=== PATIENT | female | born 1940 | race Caucasian/White ===

== ENCOUNTER 2020-01-08 09:50 | Outpatient (CLI) | payer MEDICARE, SELFPAY ==
--- NOTE | ~2020-01-08 | US_ITS ---
EXAMINATION: US thyroid DATE: 01/08/2020 11:47 INDICATION: Thyrotoxicosis, unspecified without thyrotoxic crisis. TECHNIQUE: Multiple ultrasound images of the thyroid were obtained. COMPARISON: Ultrasound 08/31/2015, 09/21/2011 FINDINGS: The right thyroid lobe measures 8.0 x 4.3 x 4.3 cm. The left thyroid lobe measures 8.2 x 4.5 x 3.1 c m. There are nodules throughout the thyroid, most of which are solid, most without normal intervenin g parenchyma. Biopsy of 2 nodules on 10/08/2011 was benign. There is a 2.6 cm mixed cystic and solid n odule in right thyroid lobe. There are macrocalcifications in left thyroid lobe. IMPRESSION: 1. Stable multinodular goiter, likely benign. Reviewed, dictated and finalized at location A.
--- NOTE | ~2020-01-08 | DEXA_ITS ---
Bone Density Report Name: Mable Chen Age: 79 Sex: Female Ethnicity: White Date of : 1940 Indication: osteopenia; height loss; Referring Provider: Romi Fuentes Study: Bone densitometry was performed. Exam Date: January 08, 2020 Accession number: [id number] Bone Density: Region BMD T-score Z-score Classification AP Spine (L1, L2) 1.012 0.3 2.9 Normal Femoral Neck (Left) 0.544 -2.7 -0.4 Osteoporosis Total Hip (Left) 0.835 -0.9 1.3 Normal Total Hip Bilateral Avg 0.774 -1.4 0.8 Osteopenia Femoral Neck (Right) 0.579 -2.4 -0.1 Osteopenia Total Hip (Right) 0.713 -1.9 0.3 Osteopenia World Health Organization criteria for BMD impression classify patients as: Normal (T-score at or above -1.0), Osteopenia (T-score between -1.0 and -2.5), or Osteoporosis (T-score at or below -2.5). 10-year Fracture Risk: FRAX not reported because: Some T-score for Spine Total or Hip Total or Femoral Neck at or below -2.5 Previous Exams: Region Exam Age BMD T-score BMD Change BMD Change Date g/cm2 vs Baseline vs Previous AP Spine(L1, L2) 01/08/2020 79 1.012 0.3 0.217(27.3%)# 0.095(10.4%)# 01/12/2011 70 0.917 -0.6 0.122(15.3%)* 0.122(15.3%)* 08/21/2003 63 0.795 -1.7 Total Hip(Left) 01/08/2020 79 0.835 -0.9 0.074(9.7%)# 0.132(18.8%)# 01/12/2011 70 0.703 -2.0 -0.059(-7.7%)* -0.059(-7.7%)* 08/21/2003 63 0.762 -1.5 Total Hip(Right) 01/08/2020 79 0.713 -1.9 -0.027(-3.7%)# 0.001(0.1%)# 01/12/2011 70 0.712 -1.9 -0.028(-3.8%)* -0.028(-3.8%)* 08/21/2003 63 0.741 -1.7 *Denotes significance at 95% confidence level, LSC for AP Spine = 0.022 g/cm2, LSC for Total Hip = 0.027 g/cm2 Clinical Information Provided by Patient: Has used the following medications: Vitamin D, Calcium Patient maximum height was 63 Menopause Age: 48 No regular weight bearing exercise Drinks caffeinated beverages Onset of menses at age 11 Number of children 0 Impression: The patient has osteoporosis, based on the Left Femoral Neck T-score. No significant bone loss was observed. Discussion: INCREASED RISK OF FRACTURE. BONE DENSITY IS UNDESIRABLY LOW AT ONE OR MORE SKELETAL SITES, CONSISTENT WITH POSTMENOPAUSAL OSTEOPOROSIS. This patient's lowest T-score meets the World Health Organization's (WHO) criteria for osteoporosis at one or more sites (T-score -2.5 or below). In untreated patients, the risk of osteoporotic fracture increases approximately
== END 2020-01-08 09:51 | disposition home or self-care (01) ==
LOC: ANHIMG 09:53
PROVIDERS: PCP Internal Medicine; Visit Provider Internal Medicine Endocrinology, Diabetes & Metabolism
DX: E05.90 Thyrotoxicosis, unspecified without thyrotoxic crisis or storm (principal); Z78.0 Asymptomatic menopausal state; E04.2 Nontoxic multinodular goiter; M85.89 Other specified disorders of bone density and structure, multiple sites; M81.0 Age-related osteoporosis without current pathological fracture
CPT/HCPCS: 76536; 77080

== ENCOUNTER 2020-07-18 16:38 | Inpatient (IN) | payer MEDICARE, SELFPAY ==
--- NOTE | ~2020-07-18 | US_ITS ---
EXAMINATION:US venous doppler LE BI INDICATION:Leg swelling TECHNIQUE: Multiple grayscale, color flow and Doppler images of the bilateral lower extremity deep ve nous systems were obtained and reviewed. COMPARISON:No prior studies for comparison. FINDINGS: The common femoral, superficial femoral and popliteal veins demonstrate normal respiratory variation, augmentation and compressibility. Color flow is also seen within the posterior tibial, gr eater saphenous and profunda veins. IMPRESSION: 1: No lower extremity deep venous thrombosis. Reviewed, dictated and finalized at location B.
--- NOTE | ~2020-07-18 | XR_ITS ---
EXAMINATION: XR chest 2V DATE: 07/19/2020 12:48 INDICATION: Cardiac arrhythmia. Lower limb swelling. TECHNIQUE: frontal and lateral views of the chest were obtained. COMPARISON: Chest radiograph dated 11/20/12 FINDINGS: Gas within a large hiatal hernia projecting over the heart. Opacities in the left lower lung zone and minimally at the right lung base which could represent atelectasis and/or pneumonia. No pleural effu marisel or pneumothorax. Cardiomegaly. Cholecystectomy clips in right upper quadrant. IMPRESSION: 1. Opacities in the lower lung zones, left greater than right which could represent atelectasis and/o r pneumonia. 2. Cardiomegaly. 3. Large hiatal hernia. Reviewed, dictated and finalized at location A. IMPRESSION: 1. Opacities in the lower lung zones, left greater than right which could repre sent atelectasis and/or pneumonia. 2. Cardiomegaly. 3. Large hiatal hernia.
[2020-07-18 16:51] VITALS: BP 131/96; PULSE 80; RESP 16; TEMP 36.1; O2SAT 100
[2020-07-18 17:35] LABS: Basophils Percent Auto 0.4 % (0.2-1.2); Eosinophils Absolute Auto 0.1 K/mm3 (0-0.3); Eosinophils Percent Auto 1.1 % (0-4.4); Hematocrit 44.3 % (37.0-47.0); Hemoglobin 14.4 g/dL (12.0-15.0); Immature Granulocyte Absolute 0.04 K/mm3 (0.00-0.031); Immature Granulocyte Percent A 0.4 % (0-0.5); Lymphocytes Absolute Auto 0.78 K/mm3 (0.9-3.2); Lymphocytes Percent Auto 7.5 % (18.3-44.2); Mean Corpuscular HGB Conc 32.5 g/dl (32-36); Mean Corpuscular Hemoglobin 27.6 pg (26-34); Mean Corpuscular Volume 84.9 fl (80-100); Mean Platelet Volume 11.6 fl (7.4-10.4); Monocytes Absolute Auto 0.7 K/mm3 (0.1-0.6); Monocytes Percent Auto 6.5 % (2.6-8.5); Neutrophils Absolute Auto 8.8 K/mm3 (1.3-6.7); Neutrophils Percent Auto 84.1 % (45.5-73.1); Platelet Count Result 235 k/mm3 (150-375); Red Blood Count 5.22 M/mm3 (4.2-5.4); Red Cell Distribution Width 17.8 % (11.5-14.5); White Blood Count 10.5 K/mm3 (4.5-10.0)
[2020-07-18 17:48] LABS: Lactic Acid Reflex 1.1 mmol/L (0.7-2.1)
[2020-07-18 19:14] LABS: INR 1.1; Partial Thromboplastin Time 31.4 SECONDS (22.3-36.8); Prothrombin Time 14.6 Seconds (11.1-14.7)
[2020-07-18 19:19] LABS: Alanine Aminotransferase 12 U/L (4-35); Albumin Level 3.8 g/dL (3.5-5.1); Alkaline Phosphatase 78 U/L (38-126); Anion Gap 8 mmol/L (8-16); Aspartate Amino Transferase 17 U/L (14-36); Bilirubin,Total 0.7 mg/dL (0.2-1.3); Blood Urea Nitrogen 53 mg/dL (7-17); Calcium 9.3 mg/dL (8.4-10.2); Carbon Dioxide 26 mmol/L (22-30); Chloride 106 mmol/L (98-107); Estimated CRCL calculation 31 ml/min; Estimated Glomerular Filt Rate 31; Glucose 99 mg/dL (65-105); Potassium 4.4 mmol/L (3.4-5.0); Sodium 140 mmol/L (137-145)
[2020-07-18 19:31] LABS: CRP 2.9 mg/dL (<1.0)
[2020-07-18 21:07] LABS: NT Pro B Type Natriuretic Pept 531 PG/ML (5-100)
--- NOTE | 2020-07-18 21:18 | ED.GENADULT ---
HPI - General Adult General Chief complaint: Wound/Laceration Stated complaint: CELLULITIS L LEG Time Seen by Provider: 07/18/20 20:16 Source: patient Mode of arrival: ambulatory Limitations: no limitations History of Present Illness HPI narrative: 80-year-old with a history of hypertension, atrial fibrillation here with complaints of left leg swelling and drainage for past 7 days. Patient states that her neighbor saw her leg today and was told to go to the emergency room. She denies any fever or chills. No history of shortness of breath or chest pain. Related Data Home Medications Medication Instructions Recorded Confirmed aspirin 81 mg tablet,delayed 81 mg PO DAILY 12/17/19 02/24/20 release colesevelam 3.75 gram oral powder 3,750 mg PO DAILY 12/17/19 02/24/20 packet metoprolol succinate 50 mg 50 mg PO DAILY 12/17/19 02/24/20 tablet,extended release 24 hr netarsudil 0.02 % eye drops 1 drop EACH EYE QPM 12/17/19 02/24/20 omega-3 fatty acids 1,000 mg 1,500 mg PO DAILY cap 12/17/19 02/24/20 capsule Allergies Allergy/AdvReac Type Severity Reaction Status Date / Time codeine Allergy Unknown Unknown Verified 07/18/20 16:11 Jgyyhfe-Rgj-Jku Reductase Allergy Unknown Unknown Verified 07/18/20 16:11 Inhibitor Sulfa (Sulfonamide Allergy Unknown Unknown Verified 07/18/20 16:11 Antibiotics) sulfanilamide Allergy Unknown Unknown Verified 07/18/20 16:11 Review of Systems Review of Systems: All systems reviewed & are unremarkable except as noted in HPI and below Constitutional: Constitutional: Reports no additional constitutional complaints Eyes: Eyes: Reports no additional eye complaints ENT: Reports system reviewed and no additional complaints, except as documented Cardiovascular: Cardiovascular: Reports no additional cardiovascular complaints Respiratory: Respiratory: Reports no additional respiratory complaints Gastrointestinal: Gastrointestinal: Reports no additional gastrointestinal complaints Musculoskeletal: Musculoskeletal: Reports as per HPI Integumentary/Breasts: Skin/Breast: Reports as per HPI Neurologic: Reports system reviewed and no additional complaints, except as documented Psychiatric: Psychiatric: Reports no additional psychiatric complaints PMFSH Past Medical History Medical History Aortic valve disease Atrial fibrillation, controlled Edema Essential (primary) hypertension Hx of malignant neoplasm of kidney Obstructive sleep apnea On watermaster drug therapy Peripheral polyneuropathy Primary osteoarthritis involving multiple joints Statin intolerance Surgical History Surgical History History of nephrectomy Family History Family History Father Hypertension Mother Hypertension Other Depression Family history of arthritis Family history of atrial fibrillation Family history of hearing loss Family history of malignant neoplasm of urinary bladder Social History Social History Smoking status: Never smoker Alcohol intake: never Exam Narrative: Exam Narrative: GENERAL: Well-appearing, well-nourished, and in no acute distress. HEAD: Normocephalic, atraumatic. EYES: PERRLA and EOMI. NECK: Supple. CHEST: Clear to auscultation. No respiratory distress. HEART: Regular rate and rhythm. No murmur heard. Normal peripheral pulses. ABDOMEN: Soft, nontender, nondistended, normal active bowel sounds. EXTREMITIES: Normal range of motion. bilateral edema ,on the left leg is weeping ,warm to touch and few open areas SKIN: Warm, dry, no rash. NEURO: No focal deficits. Alert and oriented x3. PSYCH: Normal mood and affect. Const: General: cooperative Course Course Emergency Course: I discussed lab work with the patient. [facility]
[2020-07-18] MEDS: FUROSEMIDE INJ 40 MG/4 ML VIAL IV PUSH (21:20)
[2020-07-18 23:35] VITALS: BP 111/51; PULSE 76; RESP 18; TEMP 36.2; O2SAT 98; BMI 36.3
[2020-07-19] VITALS (7 sets, daily range): BP systolic 96–107; BP diastolic 46–56; PULSE 85–87; RESP 18; TEMP 36.3–36.6; O2SAT 93–96
--- NOTE | 2020-07-19 | ADMGEN ---
This patient, Mable Chen, was admitted to [facility] Surg Room 315-01. Patient/family oriented to hospital policies and general routines including ID bracelet, bed and alarms, visiting hours, pain management, procedures, bathroom and other care routines, personal items, smoking policy, room service/diet, and visiting hours. Information on how to activate the Rapid Response Team has been discussed. Patient/Family are encouraged to report perceived risks to care and to ask questions if they do not understand what they are told or what they should do.
--- NOTE | 2020-07-19 05:13 | PM.IMHP ---
H&P: HPI History of Present Illness Date/Time: 07/19/20 05:13 Chief Complaint: Left leg infection Narrative: 80-year-old female with a past medical history of atrial fibrillation, CHF, central hypertension and pre diabetes who presented to the ER with leg pain and erythema. The patient had noticed increased level leg swelling and redness for the last 2 weeks. She thought that the symptoms were due to sleeping in her chair with her legs hanging lower. She thought her symptoms would go away but it did not. It was accompanied by some burning and stinging pain in the left lower extremity. It been accompanied by some drainage from her leg. Her neighbor saw her leg and told her to go to the ER for evaluation. The patient called her primary care Dr. Dr. Sujit Shen and he recommended she go to the ER as well. She denies any fevers or chills. She has not had any nausea or vomiting. She reports she has been sleeping in her chair because she has to walk up 2 steps to get in her bed. The bed she uses was her great grandmother's bed. She reports that sleeping in the bed at the hospital as been much more comfortable and sleeping in her chair at home. She does not have a recliner at home but has been using a chair with doris. She reports that she does not usually use a cane for ambulation but used a cane to help her get from the stretcher to the bed and she stated that that helped her stability greatly. She denies any shortness of breath or chest pain. She denies any urinary continence dysuria or hematuria. She has been having normal bowel movements every day her every other day. She denies any orthopnea or paroxysmal nocturnal dyspnea. Review of Systems Review of Systems: Narrative: 12 systems were reviewed with pertinent positives and negatives per HPI. Except as documented in the HPI, all other systems were reviewed and are negative. [facility] Past Medical History Medical History (Updated 07/19/20 @ 10:58 by Shahana Ayala DO) Aortic valve disease Atrial fibrillation, controlled Chronic kidney disease Baseline creatinine between 1.5 and 1.6 Chronic venous stasis dermatitis Diabetes mellitus Essential (primary) hypertension Glaucoma Hx of malignant neoplasm of kidney Hyperlipidemia Hyperthyroidism Multinodular goiter Obstructive sleep apnea Peripheral polyneuropathy Primary osteoarthritis involving multiple joints Statin intolerance Surgical History Surgical History (Updated 07/19/20 @ 05:30 by Shahana Ayala DO) History of nephrectomy Left nephrectomy due to kidney cancer Status post cataract extraction of both eyes with insertion of intraocular lens Family History Family History Father Hypertension Bladder cancer TIA (transient ischemic attack) Mother Hypertension Chronic bronchitis Sibling Hypertension Other Depression Family history of atrial fibrillation Family history of hearing loss Social History Social History (Updated 07/19/20 @ 10:51 by Shahana Ayala DO) Social History: The patient lives in her own home. Her nephew lives with her. She she is single and has never been . She does not have children. She is a retired teacher. She will occasionally drink an alcoholic beverage. She is a lifelong nonsmoker. She is still independent in activities of daily living and drives. Primary care physician: Dr. Sujit Shen Code status: Full code Healthcare power of sales store checker: Nephew Smoking status: Never smoker Alcohol intake: never Substance use: never Spiritual care concerns: No Meds Home Medications and Allergies Home Medications Medication Instructions Recorded Confirmed Type aspirin 81 mg tablet,delayed 81 mg PO DAILY 12/17/19 07/19/20 History release colesevelam 3.75 gram oral powder 3,750 mg PO DAILY 12/17/19 07/19/20 History packet metoprolol succinate 50 mg 50 mg PO DAILY
[2020-07-19 06:10] LABS: Basophils Percent Auto 0.2 % (0.2-1.2); Eosinophils Absolute Auto 0.1 K/mm3 (0-0.3); Eosinophils Percent Auto 0.5 % (0-4.4); Hematocrit 38.1 % (37.0-47.0); Hemoglobin 12.5 g/dL (12.0-15.0); Immature Granulocyte Absolute 0.05 K/mm3 (0.00-0.031); Immature Granulocyte Percent A 0.4 % (0-0.5); Lymphocytes Absolute Auto 0.53 K/mm3 (0.9-3.2); Lymphocytes Percent Auto 4.7 % (18.3-44.2); Mean Corpuscular HGB Conc 32.8 g/dl (32-36); Mean Corpuscular Hemoglobin 27.5 pg (26-34); Mean Corpuscular Volume 83.7 fl (80-100); Mean Platelet Volume 11.7 fl (7.4-10.4); Monocytes Absolute Auto 1.1 K/mm3 (0.1-0.6); Monocytes Percent Auto 9.6 % (2.6-8.5); Neutrophils Absolute Auto 9.4 K/mm3 (1.3-6.7); Neutrophils Percent Auto 84.6 % (45.5-73.1); Platelet Count Result 204 k/mm3 (150-375); Red Blood Count 4.55 M/mm3 (4.2-5.4); Red Cell Distribution Width 17.3 % (11.5-14.5); White Blood Count 11.2 K/mm3 (4.5-10.0)
[2020-07-19 06:26] LABS: Anion Gap 6 mmol/L (8-16); Blood Urea Nitrogen 50 mg/dL (7-17); Calcium 8.8 mg/dL (8.4-10.2); Carbon Dioxide 26 mmol/L (22-30); Chloride 107 mmol/L (98-107); Estimated CRCL calculation 27 ml/min; Estimated Glomerular Filt Rate 29; Glucose 111 mg/dL (65-105); Potassium 3.8 mmol/L (3.4-5.0); Sodium 139 mmol/L (137-145)
[2020-07-19] MEDS: FUROSEMIDE INJ 40 MG/4 ML VIAL IV PUSH (08:14)
--- NOTE | 2020-07-19 10:52 | ECG_ITS ---
Measurements Intervals [place] Rate: 84 P: AL: 0 QRS: 43 QRSD: 97 T: 46 QT: 384 QTc: 455 Interpretive Statements ATRIAL FIBRILLATION LOW QRS VOLTAGE- DIFFUSE LEADS ABNORMAL ECG Electronically Signed On 07-19-2020 14:02:30 CDT by Miguel Mccurdy D.O.
[2020-07-19] MEDS: methiMAzole 5 MG TAB PO (11:24)
[2020-07-19] MEDS: METOPROLOL SUCCINATE EXT REL 50 MG TABCR PO (11:25)
[2020-07-19] MEDS: OLMESARTAN MEDOXOMIL 20 MG TABLET 40 MG PO (11:27)
[2020-07-19] MEDS: hydroCHLOROthiazide 12.5 MG CAPSULE PO (11:27)
[2020-07-19] MEDS: amLODIPine BESYLATE 5 MG TABLET PO (11:28)
[2020-07-19] MEDS: COLESEVELAM 625 MG TABLET 3750 MG PO (11:28)
[2020-07-19] MEDS: CYANOCOBALAMIN 500 MCG TABLET PO (11:29)
[2020-07-19] MEDS: ASPIRIN 81 MG ENTERIC TABLET PO (11:29)
[2020-07-19] MEDS: TIMOLOL MALEATE 0.5% OP SOLN 5 ML BOTTLE 1 DROP EACH EYE (11:32)
[2020-07-19] MEDS: BRIMONIDINE TARTRATE 0.2% OP SOLN 5 ML BTL 1 DROP EACH EYE (11:33)
[2020-07-19 11:52] LABS: Glucose Point of Care 130 (65-105)
--- NOTE | 2020-07-19 14:37 | PM.IMPN ---
Progress Note: A&P Assessment and Plan (1) Cellulitis of left leg: Code(s): L03.116 - Cellulitis of left lower limb Status: Acute Assessment and Plan: Patient has cellulitis of her left lower extremity. Given that she is prediabetic, place patient on antibiotic therapy with vancomycin and will add Primaxin. The patient's does have chronic venous stasis dermatitis and likely has increased dependent lower extremity edema due to her sleeping sitting up in a chair. The patient is not reporting symptoms of CHF, denies SOB (2) Edema: Qualifiers: Edema type: unspecified Qualified Code(s): R60.9 - Edema, unspecified Code(s): R60.9 - Edema, unspecified Status: Acute Assessment and Plan: Shows history of CHF but no echo in computer Will check Echo Will check Venous Dopplers for DVT rule out since she has history of Afib, not on anticoagulation. Continue monitoring with SQ lovenox 40 mg daily. (3) Obstructive sleep apnea: Code(s): G47.33 - Obstructive sleep apnea (adult) (pediatric) Status: Acute Assessment and Plan: Auto titrating cPAP has been ordered as needed for sleep. (4) Atrial fibrillation, controlled: Code(s): I48.91 - Unspecified atrial fibrillation Status: Acute Assessment and Plan: The patient's heart rate is irregular on and she is likely in atrial fibrillation but is rate controlled. Given the patient's history of AFib she is not on chronic anticoagulation. EKG shows Afib HR 84 bpm. (5) Essential (primary) hypertension: Code(s): I10 - Essential (primary) hypertension Status: Acute Assessment and Plan: Will resume the patient's home antihypertensives, Tapazole, and oral hypoglycemic agents. Patient will be placed on hypoglycemia protocol. (6) Diabetes mellitus: Code(s): E11.9 - Type 2 diabetes mellitus without complications Status: Acute Assessment and Plan: Will hold her home oral medications. Check hemoglobin A1c. Glucose check insert a.c. HS. Sliding glucose initiated. Hypoglycemic protocol in place. Time Spent With Patient Time with patient: 25 - 35 minutes Subjective Date/time seen: 07/19/20 14:37 Interval history: Date of service 07/19/2020: Patient reports some improvement of her leg swelling and redness. This is been going on the last few weeks. She does have some tightness to her lower extremities as well as some weeping from some wounds. Denies any chest pain, shortness of breath, cough, fever, chills, nausea, vomiting, abdominal pain, diarrhea, constipation or any other symptoms at this time. Review of Systems Review of Systems: All systems reviewed & are unremarkable except as noted in HPI and below Exam Narrative: Exam Narrative: General: 80-year-old woman laying flat in bed, with head elevated at 30?. Appears comfortable. In no acute distress. Skin: No jaundice or cyanosis. Good skin turgor. Neck: Full range of motion. Supple. Respiratory: Lungs are clear to auscultation bilaterally. No bony chest wall tenderness. Cardiovascular: The heart has a regular rate and rhythm without murmur. Lower extremities: 1 to 2+ lower extremity pitting edema. Multiple weeping wound with some scabbing in place to bilateral lower extremities, warmth noted. Distal pulses are easily palpated. Some bilateral calf discomfort with palpation Gastrointestinal: The abdomen is soft, nontender and nondistended with active bowel sounds. Psychiatric: Lucid and oriented. Memory intact. Neurologic: No focal deficits. Speech is clear. No facial drooping. Objective Data Vital Signs Vital Signs: Vital Signs - 24 hr 07/18/20 16:51 07/18/20 23:35 07/19/20 06:00 Temperature 97 F L 97.2 F L 98 F Pulse Rate 80 76 87 Respiratory Rate 16 18 18 Blood Pressure 131/96 H 111/51 L 107/56 L Pulse Oximetry 100 98 95 07/19/20 08:56 07/19/20 11:25 07/19/20
[2020-07-19] MEDS: EZETIMIBE 10 MG TABLET PO (15:32)
[2020-07-19] MEDS: FOLIC ACID 1 MG TABLET PO (15:32)
[2020-07-19 17:02] LABS: Glucose Point of Care 143 (65-105)
[2020-07-19] MEDS: LATANOPROST 0.005% OP SOLN 2.5 ML BTL 1 DROP EACH EYE (19:49)
[2020-07-19] MEDS: ACETAMINOPHEN 325 MG TABLET 650 MG PO (19:49)
[2020-07-19 21:07] LABS: Glucose Point of Care 139 (65-105)
--- NOTE | 2020-07-20 | ECHO_ITS ---
Patient Info Name: Mable Chen Age: 80 years : 1940 Gender: Female Ht: 65 in Wt: 218 lbs BSA: 2.17 m2 HR: 75 bpm BP: 107 / 56 mmHg Technical Quality: Fair Exam Date: 07/20/2020 2:28 PM Exam Location: [facility] Patient Status: Inpatient Admit Date: 07/18/2020 Staff Ordering Physician: Janice Phillips PA-C [employer] Programmer: Gerardo Cleveland RDCS, RT Attending Provider: Janice Phillips PA-C Exam Type: CA echo dop color flow w con Study Info Complete two-dimensional, color flow and Doppler transthoracic echocardiogram is performed with contrast to opacify the left ventricle and to improve the deliniation of the left ventricle endocardial borders. Strain analysis performed. Summary 1. Left ventricular chamber dimension is normal. 2. Definity contrast administered improved wall motion interpretation. 3. Left ventricular systolic function is normal, estimated at 60-65%. 4. There is mildly increased left ventricular wall thickness. 5. The left ventricular diastolic function is normal. 6. E/e' 7 is not elevated. 7. Left atrial chamber dimension is mildly enlarged. 8. Right atrial chamber dimension is moderately enlarged. 9. There is mild aortic valve sclerosis. 10. There is mild mitral valve regurgitation. 11. There is moderate tricuspid valve regurgitation. 12. No pulmonary hypertension, estimated pulmonary arterial systolic pressure is 38 mmHg. Left Ventricle E/e' 7 is not elevated. Definity contrast administered improved wall motion interpretation. Left ventricular chamber dimension is normal. Left ventricular systolic function is normal, estimated at 60-65%. There is mildly increased left ventricular wall thickness. The left ventricular diastolic function is normal. Right Ventricle Right ventricular systolic function is normal and with normal TAPSE 2.2 cm. Right ventricular chamber dimension is normal. Left Atria Left atrial chamber dimension is mildly enlarged. Right Atria Right atrial chamber dimension is moderately enlarged. Aortic Valve The aortic valve is trileaflet. There is mild aortic valve sclerosis. There is no aortic valve stenosis. There is no aortic valve regurgitation. Pulmonic Valve There is no pulmonic regurgitation. Mitral Valve There is no mitral valve stenosis. There is mild mitral valve regurgitation. Tricuspid Valve There is moderate tricuspid valve regurgitation. No pulmonary hypertension, estimated pulmonary arterial systolic pressure is 38 mmHg. Pericardium/Pleural There is no pericardial effusion. Inferior Vena Cava Inferior vena cava is not well visualized. Aorta The aortic root size at the sinus of Valsalva is normal. Left Ventricular Outflow Tract Name Value Normal LVOT 2D LVOT Diameter 2.01 cm LVOT Doppler LVOT Peak Gradient 3 mmHg LVOT Mean Gradient 2 mmHg LVOT VTI 16.22 cm LVOT VTI/AV VTI Ratio 0.61 LVOT Stroke Volume 51.36 ml LVOT CO 4.39 l/min
[2020-07-20 06:00] VITALS: BP 102/64; PULSE 88; RESP 20; TEMP 36.4; O2SAT 99
[2020-07-20 06:41] LABS: Basophils Percent Auto 0.2 % (0.2-1.2); Eosinophils Absolute Auto 0.2 K/mm3 (0-0.3); Eosinophils Percent Auto 2.1 % (0-4.4); Hemoglobin 12.1 g/dL (12.0-15.0); Immature Granulocyte Absolute 0.04 K/mm3 (0.00-0.031); Immature Granulocyte Percent A 0.5 % (0-0.5); Lymphocytes Absolute Auto 0.85 K/mm3 (0.9-3.2); Mean Corpuscular HGB Conc 32.7 g/dl (32-36); Mean Corpuscular Hemoglobin 27.9 pg (26-34); Mean Corpuscular Volume 85.5 fl (80-100); Mean Platelet Volume 11.9 fl (7.4-10.4); Monocytes Absolute Auto 0.9 K/mm3 (0.1-0.6); Neutrophils Absolute Auto 6.5 K/mm3 (1.3-6.7); Neutrophils Percent Auto 76.2 % (45.5-73.1); Platelet Count Result 192 k/mm3 (150-375); Red Blood Count 4.33 M/mm3 (4.2-5.4); Red Cell Distribution Width 17.5 % (11.5-14.5); White Blood Count 8.5 K/mm3 (4.5-10.0)
[2020-07-20 06:53] LABS: Potassium 3.5 mmol/L (3.4-5.0)
[2020-07-20 07:02] LABS: Anion Gap 4 mmol/L (8-16); Blood Urea Nitrogen 49 mg/dL (7-17); CRP 7.1 mg/dL (<1.0); Calcium 8.5 mg/dL (8.4-10.2); Carbon Dioxide 26 mmol/L (22-30); Chloride 105 mmol/L (98-107); Estimated CRCL calculation 25 ml/min; Estimated Glomerular Filt Rate 27; Glucose 116 mg/dL (65-105); Sodium 135 mmol/L (137-145)
[2020-07-20 07:41] LABS: Glucose Point of Care 97 (65-105)
[2020-07-20 08:20] VITALS: BP 116/67; PULSE 76
[2020-07-20 08:54] VITALS: PULSE 76
[2020-07-20] MEDS: METOPROLOL SUCCINATE EXT REL 50 MG TABCR PO (08:54)
[2020-07-20] MEDS: COLESEVELAM 625 MG TABLET 3750 MG PO (08:55)
[2020-07-20] MEDS: ASPIRIN 81 MG ENTERIC TABLET PO (08:55)
[2020-07-20] MEDS: CYANOCOBALAMIN 500 MCG TABLET PO (08:55)
[2020-07-20] MEDS: EZETIMIBE 10 MG TABLET PO (08:56)
[2020-07-20] MEDS: FOLIC ACID 1 MG TABLET PO (08:56)
[2020-07-20] MEDS: ENOXAPARIN 40 MG/0.4 ML SYRINGE SUB-Q (08:57)
[2020-07-20] MEDS: BRIMONIDINE TARTRATE 0.2% OP SOLN 5 ML BTL 1 DROP EACH EYE (10:32)
[2020-07-20] MEDS: TIMOLOL MALEATE 0.5% OP SOLN 5 ML BOTTLE 1 DROP EACH EYE (10:32)
[2020-07-20] MEDS: methiMAzole 5 MG TAB PO (10:33)
[2020-07-20 11:31] LABS: Glucose Point of Care 138 (65-105)
--- NOTE | 2020-07-20 12:34 | PM.IMPN ---
Progress Note: A&P Assessment and Plan (1) Hypotension: Code(s): I95.9 - Hypotension, unspecified Status: Acute Assessment and Plan: 07/20/20- BP this morning was low 102/64. Could be from over diuresis, she is asymptomatic. Held her HCTZ, Amlodipine and Benicar this morning. Will monitor throughout the day, then restart HCTZ and Benicar in the morning. (2) Cellulitis of left leg: Code(s): L03.116 - Cellulitis of left lower limb Status: Acute Assessment and Plan: Patient has cellulitis of her left lower extremity. Given that she is prediabetic, place patient on antibiotic therapy with vancomycin and will add Primaxin. The patient's does have chronic venous stasis dermatitis and likely has increased dependent lower extremity edema due to her sleeping sitting up in a chair. Cellulitis is improving, no more warmth to extremities, open wounds noted, some slight erythema but mostly from chronic venous stasis changes. (3) Edema: Qualifiers: Edema type: unspecified Qualified Code(s): R60.9 - Edema, unspecified Code(s): R60.9 - Edema, unspecified Status: Acute Assessment and Plan: Shows history of CHF but no echo in computer Echo pending Venous Dopplers negative for DVT. Continue monitoring with SQ lovenox 40 mg daily. Improved with diuresis. (4) Obstructive sleep apnea: Code(s): G47.33 - Obstructive sleep apnea (adult) (pediatric) Status: Acute Assessment and Plan: Auto titrating cPAP has been ordered as needed for sleep. (5) Atrial fibrillation, controlled: Code(s): I48.91 - Unspecified atrial fibrillation Status: Acute Assessment and Plan: The patient's heart rate is irregular on and she is likely in atrial fibrillation but is rate controlled. Given the patient's history of AFib she is not on chronic anticoagulation. EKG shows Afib HR 84 bpm. (6) Diabetes mellitus: Code(s): E11.9 - Type 2 diabetes mellitus without complications Status: Acute Assessment and Plan: Will hold her home oral medications. Check hemoglobin A1c. Glucose check insert a.c. HS. Sliding glucose initiated. Hypoglycemic protocol in place. Time Spent With Patient Time with patient: 25 - 35 minutes Subjective Date/time seen: 07/20/20 12:34 Interval history: Date of service 07/20/2020: Patient reports some improvement of her leg swelling and redness. Patient still has oozing wounds to her lower extremities. Her blood pressure was on the lower side this morning but she denies any lightheadedness or dizziness. Denies any chest pain, shortness of breath, cough, fever, chills, nausea, vomiting, abdominal pain, diarrhea, constipation or any other symptoms at this time. Review of Systems Review of Systems: All systems reviewed & are unremarkable except as noted in HPI and below Exam Narrative: Exam Narrative: General: 80-year-old woman sitting up in the chair talking to the nurse. Appears comfortable. In no acute distress. Skin: No jaundice or cyanosis. Good skin turgor. Neck: Full range of motion. Supple. Respiratory: Lungs are clear to auscultation bilaterally. No bony chest wall tenderness. Cardiovascular: The heart has a regular rate and rhythm without murmur. Lower extremities: 1 to 2+ lower extremity pitting edema. Multiple weeping wound with some scabbing in place to bilateral lower extremities, no warmth noted on examination. Distal pulses are easily palpated. No calf tenderness. Gastrointestinal: The abdomen is soft, nontender and nondistended with active bowel sounds. Psychiatric: Lucid and oriented. Memory intact. Neurologic: No focal deficits. Speech is clear. No facial drooping. Objective Data Vital Signs Vital Signs: Vital Signs - 24 hr 07/19/20 14:00 07/19/20 15:33 07/19/20 22:00 Temperature 97.3 F L 97.8 F Pulse Rate 87 85 Respiratory Rate 18 18 Blood Pr
[2020-07-20] MEDS: PERFLUTREN LIPID MICROSPHERES 1.5 ML VIAL DILUTED TO 10 ML TOTAL VOLUME IV PUSH (15:15)
--- NOTE | 2020-07-20 15:16 | PC.NURSE ---
On 07/20/20, the student, [Miky Stiles ], provided care and completed [facility] documentation on this patient. I have reviewed the student's documentation and agree with the findings.
--- NOTE | 2020-07-20 15:16 | PC.NURSE ---
On 07/20/20, the student, [Urmila Alexander], provided care and completed [employer] documentation on this patient. I have reviewed the student's documentation and agree with the findings.
[2020-07-20 16:00] VITALS: BP 97/62; PULSE 51; RESP 20; TEMP 36.1; O2SAT 99
[2020-07-20] MEDS: SILVERGEL (ELTA) 45 ML 1 APPLIC TOPICAL (16:13)
[2020-07-20 16:42] LABS: Glucose Point of Care 122 (65-105)
[2020-07-20 20:50] VITALS: PULSE 91; RESP 18; O2SAT 95
[2020-07-20] MEDS: LATANOPROST 0.005% OP SOLN 2.5 ML BTL 1 DROP EACH EYE (21:05)
[2020-07-20 21:17] LABS: Glucose Point of Care 98 (65-105)
[2020-07-20] MEDS: ACETAMINOPHEN 325 MG TABLET 650 MG PO (21:26)
[2020-07-20 22:00] VITALS: BP 105/53; PULSE 91; RESP 18; TEMP 36.7; O2SAT 95
[2020-07-21] VITALS (9 sets, daily range): BP systolic 89–107; BP diastolic 52–71; PULSE 78–94; RESP 20; TEMP 36.2–37; O2SAT 9–98
[2020-07-21 07:07] LABS: Hematocrit 34.4 % (37.0-47.0); Hemoglobin 11.3 g/dL (12.0-15.0); Mean Corpuscular HGB Conc 32.8 g/dl (32-36); Mean Corpuscular Hemoglobin 27.4 pg (26-34); Mean Corpuscular Volume 83.5 fl (80-100); Mean Platelet Volume 12.3 fl (7.4-10.4); Platelet Count Result 194 k/mm3 (150-375); Red Blood Count 4.12 M/mm3 (4.2-5.4); Red Cell Distribution Width 17.2 % (11.5-14.5); White Blood Count 8.5 K/mm3 (4.5-10.0)
[2020-07-21 07:22] LABS: Anion Gap 3 mmol/L (8-16); Blood Urea Nitrogen 49 mg/dL (7-17); CRP 7.6 mg/dL (<1.0); Calcium 8.4 mg/dL (8.4-10.2); Carbon Dioxide 25 mmol/L (22-30); Chloride 107 mmol/L (98-107); Estimated CRCL calculation 29 ml/min; Estimated Glomerular Filt Rate 31; Glucose 95 mg/dL (65-105); Magnesium 1.9 mg/dL (1.6-2.3); Potassium 3.5 mmol/L (3.4-5.0); Sodium 135 mmol/L (137-145)
[2020-07-21 08:16] LABS: Glucose Point of Care 96 (65-105)
[2020-07-21] MEDS: COLESEVELAM 625 MG TABLET 3750 MG PO (08:20)
[2020-07-21] MEDS: ASPIRIN 81 MG ENTERIC TABLET PO (08:20)
[2020-07-21] MEDS: FOLIC ACID 1 MG TABLET PO (08:21)
[2020-07-21] MEDS: CYANOCOBALAMIN 500 MCG TABLET PO (08:21)
[2020-07-21] MEDS: ENOXAPARIN 40 MG/0.4 ML SYRINGE SUB-Q (08:21)
[2020-07-21] MEDS: EZETIMIBE 10 MG TABLET PO (08:21)
[2020-07-21] MEDS: BRIMONIDINE TARTRATE 0.2% OP SOLN 5 ML BTL 1 DROP EACH EYE (08:21)
[2020-07-21] MEDS: methiMAzole 5 MG TAB PO (08:22)
[2020-07-21] MEDS: METOPROLOL SUCCINATE EXT REL 50 MG TABCR PO (08:22)
[2020-07-21] MEDS: TIMOLOL MALEATE 0.5% OP SOLN 5 ML BOTTLE 1 DROP EACH EYE (08:24)
[2020-07-21] MEDS: SILVERGEL (ELTA) 45 ML 1 APPLIC TOPICAL (08:29)
[2020-07-21] MEDS: hydroCHLOROthiazide 12.5 MG CAPSULE PO (10:32)
[2020-07-21] MEDS: OLMESARTAN MEDOXOMIL 20 MG TABLET 40 MG PO (10:32)
--- NOTE | 2020-07-21 11:58 | PM.DS ---
DS: Admitting Diagnosis Admitting Diagnosis Admitting Diagnosis: Leg swelling/redness DS: Discharge Diagnosis Discharge Diagnosis (1) Hypotension: Code(s): I95.9 - Hypotension, unspecified Status: Acute Assessment and Plan: 07/20/20- BP this morning was still low at 105/56. Could be from over diuresis, she is asymptomatic. Held her HCTZ, Amlodipine and Benicar 07/20-Then restarted HCTZ and Benicar this morning. Rechecked BP at noon and it was 89/56 sitting in the chair and with standing she increased to 107/71. I believe we over diuresised her. Will give IV fluid hydration LR 75 cc/hr for 1 liter. Will continue monitoring BP, recheck labs in the morning. (2) Cellulitis of left leg: Code(s): L03.116 - Cellulitis of left lower limb Status: Acute Assessment and Plan: Patient has cellulitis of her left lower extremity. Given that she is prediabetic, place patient on antibiotic therapy with vancomycin and will add Primaxin. The patient's does have chronic venous stasis dermatitis and likely has increased dependent lower extremity edema due to her sleeping sitting up in a chair. Cellulitis is improving, no more warmth to extremities, open wounds noted, some slight erythema but mostly from chronic venous stasis changes. Will continue antibiotics orally as outpatient Doxycycline and Keflex for 4 more days of therapy. Will start this now and check EKG in the morning due to Borderline QTc on EKG on arrival. Will have her follow up with PCP in 1 week for further evaluation Will have home health monitoring and taking care of extremity wounds and then follow up with our outpatient wound clinic once more stable. She understands and agrees with the plan. All questions answered. (3) Edema: Qualifiers: Edema type: unspecified Qualified Code(s): R60.9 - Edema, unspecified Code(s): R60.9 - Edema, unspecified Status: Acute Assessment and Plan: Echo results rule out CHF cause, most likely from chronic venous insufficiency and venous stasis. Echo showing normal EF and diastolic function. Venous Dopplers negative for DVT. Continue monitoring with SQ lovenox 40 mg daily. Improved with diuresis. Will continue home medications, HCTZ and recommended low salt diet, elevating legs while sitting down, as well as checking her weights daily to ensure there is no wt gain, fluid overload. (4) Obstructive sleep apnea: Code(s): G47.33 - Obstructive sleep apnea (adult) (pediatric) Status: Acute Assessment and Plan: Auto titrating cPAP has been ordered as needed for sleep. (5) Atrial fibrillation, controlled: Code(s): I48.91 - Unspecified atrial fibrillation Status: Acute Assessment and Plan: The patient's heart rate is irregular on and she is likely in atrial fibrillation but is rate controlled. Given the patient's history of AFib she is not on chronic anticoagulation. EKG shows Afib HR 84 bpm. (6) Diabetes mellitus: Qualifiers: Diabetes mellitus type: type 2 Diabetes mellitus usp insulin use: without usp use Diabetes mellitus complication status: without complication Qualified Code(s): E11.9 - Type 2 diabetes mellitus without complications Code(s): E11.9 - Type 2 diabetes mellitus without complications Status: Acute Assessment and Plan: Will hold her home oral medications. Hemoglobin A1c was 6.0, well controlled. Continue oral home medications. Follow up with PCP. (7) Elevated C-reactive protein: Code(s): R79.82 - Elevated C-reactive protein (CRP) Status: Acute Assessment and Plan: Patient has elevated CRP multiple days into hospitalization. She is on broad-spectrum antibiotics with her symptoms improving. She has no change to her respiratory, urinary or abdominal symptoms. She is feeling back to normal at this time. No fevers or chills. Pat
--- NOTE | 2020-07-21 12:19 | PM.IMPN ---
Progress Note: A&P Assessment and Plan (1) Hypotension: Code(s): I95.9 - Hypotension, unspecified Status: Acute Assessment and Plan: 07/20/20- BP this morning was still low at 105/56. Could be from over diuresis, she is asymptomatic. Held her HCTZ, Amlodipine and Benicar 07/20-Then restarted HCTZ and Benicar this morning. Rechecked BP at noon and it was 89/56 sitting in the chair and with standing she increased to 107/71. I believe we over diuresised her. Will give IV fluid hydration LR 75 cc/hr for 1 liter. Will continue monitoring BP, recheck labs in the morning. (2) Cellulitis of left leg: Code(s): L03.116 - Cellulitis of left lower limb Status: Acute Assessment and Plan: Patient has cellulitis of her left lower extremity. Given that she is prediabetic, place patient on antibiotic therapy with vancomycin and will add Primaxin. The patient's does have chronic venous stasis dermatitis and likely has increased dependent lower extremity edema due to her sleeping sitting up in a chair. Cellulitis is improving, no more warmth to extremities, open wounds noted, some slight erythema but mostly from chronic venous stasis changes. Will continue antibiotics orally as outpatient Doxycycline and Keflex for 4 more days of therapy. Will start this now and check EKG in the morning due to Borderline QTc on EKG on arrival. (3) Edema: Qualifiers: Edema type: unspecified Qualified Code(s): R60.9 - Edema, unspecified Code(s): R60.9 - Edema, unspecified Status: Acute Assessment and Plan: Echo results rule out CHF cause, most likely from chronic venous insufficiency and venous stasis. Echo showing normal EF and diastolic function. Venous Dopplers negative for DVT. Continue monitoring with SQ lovenox 40 mg daily. Improved with diuresis. (4) Obstructive sleep apnea: Code(s): G47.33 - Obstructive sleep apnea (adult) (pediatric) Status: Acute Assessment and Plan: Auto titrating cPAP has been ordered as needed for sleep. (5) Atrial fibrillation, controlled: Code(s): I48.91 - Unspecified atrial fibrillation Status: Acute Assessment and Plan: The patient's heart rate is irregular on and she is likely in atrial fibrillation but is rate controlled. Given the patient's history of AFib she is not on chronic anticoagulation. EKG shows Afib HR 84 bpm. (6) Diabetes mellitus: Qualifiers: Diabetes mellitus type: type 2 Diabetes mellitus mcfp insulin use: without exterminator termite use Diabetes mellitus complication status: without complication Qualified Code(s): E11.9 - Type 2 diabetes mellitus without complications Code(s): E11.9 - Type 2 diabetes mellitus without complications Status: Acute Assessment and Plan: Will hold her home oral medications. Hemoglobin A1c was 6.0, well controlled. Continue oral home medications. Follow up with PCP. (7) Elevated C-reactive protein: Code(s): R79.82 - Elevated C-reactive protein (CRP) Status: Acute Assessment and Plan: Patient has elevated CRP multiple days into hospitalization. She is on broad-spectrum antibiotics with her symptoms improving. She has no change to her respiratory, urinary or abdominal symptoms. She is feeling back to normal at this time. No fevers or chills. Patient denies any diarrhea which could be concerning for C diff from antibiotics. Time Spent With Patient Time with patient: 25 - 35 minutes Subjective Date/time seen: 07/21/20 12:19 Interval history: Date of service 07/21/2020: Patient reports some improvement of her leg swelling and redness. She is feeling better today, but appears fatigued/tired. Her blood pressure was still low this morning but she denies any lightheadedness or dizziness. Denies any chest pain, shortness of breath, cough, fever, chills,
[2020-07-21 12:20] LABS: Glucose Point of Care 131 (65-105)
[2020-07-21] MEDS: LACTATED RINGERS 1,000 ML 75 ML IV CONT (12:37)
[2020-07-21] MEDS: CEPHALEXIN 250 MG CAPSULE PO ×2 (14:18→21:03)
[2020-07-21] MEDS: SACCHAROMYCES BOULARDII 250 MG CAPSULE PO (16:40)
[2020-07-21 16:56] LABS: Glucose Point of Care 90 (65-105)
[2020-07-21] MEDS: DOXYCYCLINE HYCLATE 100 MG TABLET PO (21:03)
[2020-07-21] MEDS: LATANOPROST 0.005% OP SOLN 2.5 ML BTL 1 DROP EACH EYE (21:03)
[2020-07-21 22:01] LABS: Glucose Point of Care 111 (65-105)
[2020-07-22 05:46] VITALS: BP 125/73; PULSE 85; RESP 18; TEMP 36.3; O2SAT 97
[2020-07-22] MEDS: CEPHALEXIN 250 MG CAPSULE PO ×3 (05:49→20:56)
[2020-07-22 06:14] LABS: Hematocrit 35.4 % (37.0-47.0); Hemoglobin 11.5 g/dL (12.0-15.0); Mean Corpuscular HGB Conc 32.5 g/dl (32-36); Mean Corpuscular Hemoglobin 27.4 pg (26-34); Mean Corpuscular Volume 84.3 fl (80-100); Mean Platelet Volume 11.4 fl (7.4-10.4); Platelet Count Result 202 k/mm3 (150-375); Red Cell Distribution Width 17.2 % (11.5-14.5); White Blood Count 8.7 K/mm3 (4.5-10.0)
[2020-07-22 06:46] LABS: Anion Gap 6 mmol/L (8-16); Blood Urea Nitrogen 43 mg/dL (7-17); Calcium 8.4 mg/dL (8.4-10.2); Carbon Dioxide 25 mmol/L (22-30); Chloride 108 mmol/L (98-107); Estimated CRCL calculation 29 ml/min; Estimated Glomerular Filt Rate 31; Glucose 92 mg/dL (65-105); Magnesium 1.9 mg/dL (1.6-2.3); Potassium 3.6 mmol/L (3.4-5.0); Sodium 139 mmol/L (137-145)
[2020-07-22 08:43] LABS: Glucose Point of Care 93 (65-105)
[2020-07-22] MEDS: TIMOLOL MALEATE 0.5% OP SOLN 5 ML BOTTLE 1 DROP EACH EYE (08:44)
[2020-07-22] MEDS: SILVERGEL (ELTA) 45 ML 1 APPLIC TOPICAL (08:44)
[2020-07-22] MEDS: COLESEVELAM 625 MG TABLET 3750 MG PO (08:45)
[2020-07-22] MEDS: OLMESARTAN MEDOXOMIL 20 MG TABLET 40 MG PO (08:45)
[2020-07-22 08:46] VITALS: PULSE 71
[2020-07-22] MEDS: EZETIMIBE 10 MG TABLET PO (08:46)
[2020-07-22] MEDS: METOPROLOL SUCCINATE EXT REL 50 MG TABCR PO (08:46)
[2020-07-22] MEDS: ENOXAPARIN 40 MG/0.4 ML SYRINGE SUB-Q (08:48)
[2020-07-22] MEDS: ASPIRIN 81 MG ENTERIC TABLET PO (08:48)
[2020-07-22] MEDS: DOXYCYCLINE HYCLATE 100 MG TABLET PO ×2 (08:49→20:56)
[2020-07-22] MEDS: methiMAzole 5 MG TAB PO (08:49)
[2020-07-22] MEDS: SACCHAROMYCES BOULARDII 250 MG CAPSULE PO ×2 (08:49→16:43)
[2020-07-22] MEDS: FOLIC ACID 1 MG TABLET PO (08:49)
[2020-07-22] MEDS: CYANOCOBALAMIN 500 MCG TABLET PO (08:50)
[2020-07-22] MEDS: BRIMONIDINE TARTRATE 0.2% OP SOLN 5 ML BTL 1 DROP EACH EYE (08:50)
[2020-07-22 12:27] LABS: Glucose Point of Care 150 (65-105)
[2020-07-22 14:00] VITALS: BP 98/63; PULSE 83; RESP 16; TEMP 36.6; O2SAT 98
--- NOTE | 2020-07-22 15:15 | PM.IMPN ---
Progress Note: A&P Assessment and Plan (1) Discharge planning issues: Code(s): Z02.9 - Encounter for administrative examinations, unspecified Status: Acute Assessment and Plan: Patient was set up to go home with home health but is very weak today. 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 At this time I am worried about her going home, she has no family nearby to check in on her and she was otherwise independent completely prior to hospitalization. Will continue to evaluate her need for possible acute rehab facility versus SNF. Continue PT/OT at this time. (2) Hypotension: Code(s): I95.9 - Hypotension, unspecified Status: Acute Assessment and Plan: 07/20/20- BP this morning was still low at 105/56. Could be from over diuresis, she is asymptomatic. Held her HCTZ, Amlodipine and Benicar 07/20-Then restarted HCTZ and Benicar 07/21/20. Rechecked BP at noon and it was 89/56 sitting in the chair and with standing she increased to 107/71. I believe we over diuresised her. Will give IV fluid hydration LR 75 cc/hr for 1 liter. Blood pressure this morning was 125/73. Her Benicar 40 mg this morning. Continue to hold her hydrochlorothiazide and amlodipine. Will continue monitoring BP, recheck labs in the morning. (3) Cellulitis of left leg: Code(s): L03.116 - Cellulitis of left lower limb Status: Acute Assessment and Plan: Patient has cellulitis of her left lower extremity. Given that she is prediabetic, place patient on antibiotic therapy with vancomycin and will add Primaxin. The patient's does have chronic venous stasis dermatitis and likely has increased dependent lower extremity edema due to her sleeping sitting up in a chair. Cellulitis is improving, no more warmth to extremities, open wounds noted, some slight erythema but mostly from chronic venous stasis changes. Will continue antibiotics orally as outpatient Doxycycline and Keflex for 3 more days of therapy. (4) QT prolongation: Code(s): R94.31 - Abnormal electrocardiogram [ECG] [EKG] Status: Acute Assessment and Plan: Day #1 of Doxycycline which is known to cause QTc prologation. Will obtain EKG to ensure QTc is not getting longer. Initially it was 455 (Borderline long) (5) Edema: Qualifiers: Edema type: unspecified Qualified Code(s): R60.9 - Edema, unspecified Code(s): R60.9 - Edema, unspecified Status: Acute Assessment and Plan: Echo results rule out CHF cause, most likely from chronic venous insufficiency and venous stasis. Echo showing normal EF and diastolic function. Venous Dopplers negative for DVT. Continue monitoring with SQ lovenox 40 mg daily. Improved with diuresis. (6) Obstructive sleep apnea: Code(s): G47.33 - Obstructive sleep apnea (adult) (pediatric) Status: Acute Assessment and Plan: Auto titrating cPAP has been ordered as needed for sleep. (7) Atrial fibrillation, controlled: Code(s): I48.91 - Unspecified atrial fibrillation Status: Acute Assessment and Plan: The patient's heart rate is irregular on and she is likely in atrial fibrillation but is rate controlled. Given the patient's history of AFib she is not on chronic anticoagulation. EKG shows Afib HR 84 bpm. (8) Diabetes mellitus: Qualifiers: Diabetes mellitus type: type 2 Diabetes mellitus joint terminal attack controller insulin use: without joint terminal attack controller use Diabetes mellitus complication status: without complication Qualified Code(s): E11.9 - Type 2 diabetes mellitus without complications Code(s): E11.9 - Type 2 diabetes mellitus without complications Status: Acute Assessment and Plan: Will hold her home oral medications. Hemoglobin A1c was 6.0, well controlled. Continue oral home medications. F
--- NOTE | 2020-07-22 15:20 | ECG_ITS ---
Measurements Intervals [place] Rate: 92 P: NV: 0 QRS: 1 QRSD: 83 T: -7 QT: 378 QTc: 470 Interpretive Statements ATRIAL FIBRILLATION LOW QRS VOLTAGE IN PRECORDIAL LEADS CONSIDER INFERIOR INFARCT, AGE INDETERMINATE ABNORMAL ECG Electronically Signed On 07-22-2020 15:51:45 CDT by Miguel Mccurdy D.O.
[2020-07-22 16:59] LABS: Glucose Point of Care 92 (65-105)
[2020-07-22 20:00] VITALS: PULSE 77; RESP 18; O2SAT 94
[2020-07-22] MEDS: LATANOPROST 0.005% OP SOLN 2.5 ML BTL 1 DROP EACH EYE (20:56)
[2020-07-22 22:00] VITALS: BP 121/66; PULSE 94; RESP 18; TEMP 35.9; O2SAT 100
[2020-07-22 22:05] LABS: Glucose Point of Care 108 (65-105)
[2020-07-22 22:19] VITALS: PULSE 106; O2SAT 91
[2020-07-23] VITALS (8 sets, daily range): BP systolic 95–119; BP diastolic 58–73; PULSE 70–89; RESP 18–20; TEMP 36.1–36.4; O2SAT 94–100
[2020-07-23] MEDS: CEPHALEXIN 250 MG CAPSULE PO ×3 (06:25→22:37)
[2020-07-23 06:42] LABS: Anion Gap 4 mmol/L (8-16); Blood Urea Nitrogen 45 mg/dL (7-17); Calcium 8.3 mg/dL (8.4-10.2); Carbon Dioxide 27 mmol/L (22-30); Chloride 108 mmol/L (98-107); Estimated CRCL calculation 29 ml/min; Estimated Glomerular Filt Rate 31; Glucose 90 mg/dL (65-105); Potassium 3.8 mmol/L (3.4-5.0); Sodium 139 mmol/L (137-145)
[2020-07-23 08:19] LABS: Glucose Point of Care 98 (65-105)
[2020-07-23] MEDS: TIMOLOL MALEATE 0.5% OP SOLN 5 ML BOTTLE 1 DROP EACH EYE (09:00)
[2020-07-23] MEDS: DOXYCYCLINE HYCLATE 100 MG TABLET PO ×2 (09:01→20:43)
[2020-07-23] MEDS: ASPIRIN 81 MG ENTERIC TABLET PO (09:01)
[2020-07-23] MEDS: FOLIC ACID 1 MG TABLET PO (09:01)
[2020-07-23] MEDS: ENOXAPARIN 40 MG/0.4 ML SYRINGE SUB-Q (09:01)
[2020-07-23] MEDS: BRIMONIDINE TARTRATE 0.2% OP SOLN 5 ML BTL 1 DROP EACH EYE (09:01)
[2020-07-23] MEDS: CYANOCOBALAMIN 500 MCG TABLET PO (09:01)
[2020-07-23] MEDS: OLMESARTAN MEDOXOMIL 20 MG TABLET PO (09:02)
[2020-07-23] MEDS: COLESEVELAM 625 MG TABLET 3750 MG PO (09:02)
[2020-07-23] MEDS: SACCHAROMYCES BOULARDII 250 MG CAPSULE PO ×2 (09:03→16:46)
[2020-07-23] MEDS: methiMAzole 5 MG TAB PO (09:03)
[2020-07-23] MEDS: SILVERGEL (ELTA) 45 ML 1 APPLIC TOPICAL (09:03)
[2020-07-23] MEDS: EZETIMIBE 10 MG TABLET PO (09:03)
[2020-07-23] MEDS: METOPROLOL SUCCINATE EXT REL 50 MG TABCR PO (09:03)
[2020-07-23 11:44] LABS: Glucose Point of Care 109 (65-105)
--- NOTE | 2020-07-23 12:00 | PM.IMPN ---
Progress Note: A&P Assessment and Plan (1) Discharge planning issues: Code(s): Z02.9 - Encounter for administrative examinations, unspecified Status: Acute Assessment and Plan: Patient was set up to go home with home health but is very weak today. At this time I am worried about her going home, she has no family nearby to check in on her and she was otherwise independent completely prior to hospitalization. Will continue to evaluate her need for possible acute rehab facility versus SNF. Continue PT/OT at this time. (2) Hypotension: Code(s): I95.9 - Hypotension, unspecified Status: Acute Assessment and Plan: 07/20/20- BP this morning was still low at 105/56. Could be from over diuresis, she is asymptomatic. Held her HCTZ, Amlodipine and Benicar 07/20-Then restarted HCTZ and Benicar 07/21/20. Rechecked BP at noon and it was 89/56 sitting in the chair and with standing she increased to 107/71. I believe we over diuresised her. Will give IV fluid hydration LR 75 cc/hr for 1 liter. Blood pressure this morning was 119/68. Decreased her Benicar to 20 mg this morning. Continue to hold her hydrochlorothiazide and amlodipine. Will continue monitoring BP, recheck labs in the morning. (3) Cellulitis of left leg: Code(s): L03.116 - Cellulitis of left lower limb Status: Acute Assessment and Plan: Patient has cellulitis of her left lower extremity. Given that she is prediabetic, place patient on antibiotic therapy with vancomycin and will add Primaxin. The patient's does have chronic venous stasis dermatitis and likely has increased dependent lower extremity edema due to her sleeping sitting up in a chair. Cellulitis is improving, no more warmth to extremities, open wounds noted, some slight erythema but mostly from chronic venous stasis changes. Will continue antibiotics orally as outpatient Doxycycline and Keflex for 2 more days of therapy. (4) QT prolongation: Code(s): R94.31 - Abnormal electrocardiogram [ECG] [EKG] Status: Acute Assessment and Plan: Initially it was 455 (Borderline long) Day #1 of Doxycycline which is known to cause QTc prologation. EKG shows lengthening of QTc 470. Day #2 of Doxycycline will repeat EKG this afternoon Will obtain EKG to ensure QTc is not getting longer. (5) Edema: Qualifiers: Edema type: unspecified Qualified Code(s): R60.9 - Edema, unspecified Code(s): R60.9 - Edema, unspecified Status: Acute Assessment and Plan: Echo results rule out CHF cause, most likely from chronic venous insufficiency and venous stasis. Echo showing normal EF and diastolic function. Venous Dopplers negative for DVT. Continue monitoring with SQ lovenox 40 mg daily. Improved with diuresis. (6) Obstructive sleep apnea: Code(s): G47.33 - Obstructive sleep apnea (adult) (pediatric) Status: Acute Assessment and Plan: Auto titrating cPAP has been ordered as needed for sleep. (7) Atrial fibrillation, controlled: Code(s): I48.91 - Unspecified atrial fibrillation Status: Acute Assessment and Plan: The patient's heart rate is irregular on and she is likely in atrial fibrillation but is rate controlled. Given the patient's history of AFib she is not on chronic anticoagulation. EKG shows Afib HR 84 bpm. (8) Diabetes mellitus: Qualifiers: Diabetes mellitus complication status: without complication Diabetes mellitus chcf insulin use: without chcf use Diabetes mellitus type: type 2 Qualified Code(s): E11.9 - Type 2 diabetes [facility]
--- NOTE | 2020-07-23 15:00 | ECG_ITS ---
Measurements Intervals [place] Rate: 78 P: SD: 0 QRS: 13 QRSD: 85 T: 5 QT: 388 QTc: 442 Interpretive Statements ATRIAL FIBRILLATION CONSIDER INFERIOR INFARCT, AGE INDETERMINATE BASELINE ARTIFACT- III, AVF ABNORMAL ECG Electronically Signed On 07-23-2020 15:09:58 CDT by Miguel Mccurdy D.O.
[2020-07-23 16:22] LABS: Glucose Point of Care 114 (65-105)
[2020-07-23] MEDS: LATANOPROST 0.005% OP SOLN 2.5 ML BTL 1 DROP EACH EYE (20:43)
[2020-07-24 00:35] VITALS: PULSE 83; O2SAT 99
[2020-07-24] MEDS: CEPHALEXIN 250 MG CAPSULE PO ×3 (05:57→21:14)
[2020-07-24 06:00] VITALS: BP 112/68; PULSE 88; RESP 18; TEMP 36.1; O2SAT 95
[2020-07-24 06:22] LABS: Potassium 3.8 mmol/L (3.4-5.0)
[2020-07-24 06:37] LABS: Anion Gap 4 mmol/L (8-16); Blood Urea Nitrogen 44 mg/dL (7-17); Calcium 8.1 mg/dL (8.4-10.2); Carbon Dioxide 24 mmol/L (22-30); Chloride 111 mmol/L (98-107); Estimated CRCL calculation 32 ml/min; Estimated Glomerular Filt Rate 36; Glucose 95 mg/dL (65-105); Sodium 139 mmol/L (137-145)
[2020-07-24 06:47] LABS: Glucose Point of Care 93 (65-105)
[2020-07-24 08:05] LABS: Glucose Point of Care 114 (65-105)
[2020-07-24] MEDS: DOXYCYCLINE HYCLATE 100 MG TABLET PO ×2 (09:57→21:14)
[2020-07-24] MEDS: ENOXAPARIN 40 MG/0.4 ML SYRINGE SUB-Q (09:57)
[2020-07-24] MEDS: SACCHAROMYCES BOULARDII 250 MG CAPSULE PO ×2 (09:57→16:51)
[2020-07-24] MEDS: FOLIC ACID 1 MG TABLET PO (09:57)
[2020-07-24] MEDS: CYANOCOBALAMIN 500 MCG TABLET PO (09:57)
[2020-07-24] MEDS: methiMAzole 5 MG TAB PO (09:57)
[2020-07-24] MEDS: EZETIMIBE 10 MG TABLET PO (09:57)
[2020-07-24] MEDS: COLESEVELAM 625 MG TABLET 3750 MG PO (09:57)
[2020-07-24] MEDS: SILVERGEL (ELTA) 45 ML 1 APPLIC TOPICAL (09:58)
[2020-07-24] MEDS: ASPIRIN 81 MG ENTERIC TABLET PO (09:58)
[2020-07-24 09:59] VITALS: PULSE 87
[2020-07-24] MEDS: METOPROLOL SUCCINATE EXT REL 50 MG TABCR PO (09:59)
[2020-07-24] MEDS: TIMOLOL MALEATE 0.5% OP SOLN 5 ML BOTTLE 1 DROP EACH EYE (10:00)
[2020-07-24] MEDS: BRIMONIDINE TARTRATE 0.2% OP SOLN 5 ML BTL 1 DROP EACH EYE (10:00)
[2020-07-24] MEDS: LACTATED RINGERS 500 ML 100 ML IV CONT (10:03)
--- NOTE | 2020-07-24 11:01 | PM.IMPN ---
Progress Note: A&P Assessment and Plan (1) Discharge planning issues: Code(s): Z02.9 - Encounter for administrative examinations, unspecified Status: Acute Assessment and Plan: Patient was set up to go home with home health but is very weak today. At this time I am worried about her going home, she has no family nearby to check in on her and she was otherwise independent completely prior to hospitalization. Care coordination working on insurance authorizations and options for possible acute rehab facility (which I feel would be great for her with how active she normally is at home with activities, driving everyday) versus SNF. Continue PT/OT at this time. (2) Hypotension: Code(s): I95.9 - Hypotension, unspecified Status: Acute Assessment and Plan: 07/20/20- BP this morning was still low at 105/56. Could be from over diuresis, she is asymptomatic. Held her HCTZ, Amlodipine and Benicar 07/20-Then restarted HCTZ and Benicar 07/21/20. Rechecked BP at noon and it was 89/56 sitting in the chair and with standing she increased to 107/71. I believe we over diuresised her. Will give IV fluid hydration LR 75 cc/hr for 1 liter. 07/24/20-patient's blood pressure still remains low normal, 112/68 to 95/58. I will continue to hold her Benicar and HCTZ, discontinue her amlodipine. Will give IV Fluids 500 cc of LR. She denies any lightheadedness or dizziness with sitting up or walking Will continue monitoring BP, recheck labs in the morning. (3) Cellulitis of left leg: Code(s): L03.116 - Cellulitis of left lower limb Status: Acute Assessment and Plan: Patient has cellulitis of her left lower extremity. Given that she is prediabetic, place patient on antibiotic therapy with vancomycin and will add Primaxin. The patient's does have chronic venous stasis dermatitis and likely has increased dependent lower extremity edema due to her sleeping sitting up in a chair. Cellulitis is improving, no more warmth to extremities, open wounds noted, some slight erythema but mostly from chronic venous stasis changes. Will continue antibiotics orally as outpatient Doxycycline and Keflex for 1 more days of therapy. (4) QT prolongation: Code(s): R94.31 - Abnormal electrocardiogram [ECG] [EKG] Status: Acute Assessment and Plan: Initially it was 455 (Borderline long) Day #1 of Doxycycline which is known to cause QTc prologation. EKG shows lengthening of QTc 470. Day #2 of Doxycycline yesterday showed QTc 442. Doing well, and only a few more doses left. No longer trending up. Will quit checking EKGs at this point. (5) Edema: Qualifiers: Edema type: unspecified Qualified Code(s): R60.9 - Edema, unspecified Code(s): R60.9 - Edema, unspecified Status: Acute Assessment and Plan: Echo results rule out CHF cause, most likely from chronic venous insufficiency and venous stasis. Echo showing normal EF and diastolic function. Venous Dopplers negative for DVT. Continue monitoring with SQ lovenox 40 mg daily. Improved with diuresis. (6) Obstructive sleep apnea: Code(s): G47.33 - Obstructive sleep apnea (adult) (pediatric) Status: Acute Assessment and Plan: Auto titrating cPAP has been ordered as needed for sleep. (7) Atrial fibrillation, controlled: Code(s): I48.91 - Unspecified atrial fibrillation Status: Acute Assessment and Plan: The patient's heart rate is irregular on and she is likely in atrial fibrillation but is rate controlled. Given the patient's history of AFib she is not on chronic anticoagulation. EKG shows Afib HR 78 bpm.
[2020-07-24 12:53] LABS: Glucose Point of Care 120 (65-105)
[2020-07-24 14:00] VITALS: BP 111/65; PULSE 92; RESP 20; TEMP 36.6; O2SAT 100
[2020-07-24 16:55] LABS: Glucose Point of Care 107 (65-105)
[2020-07-24 20:56] LABS: Glucose Point of Care 95 (65-105)
[2020-07-24] MEDS: LATANOPROST 0.005% OP SOLN 2.5 ML BTL 1 DROP EACH EYE (21:14)
[2020-07-24 21:54] VITALS: PULSE 66; O2SAT 96
[2020-07-24 22:00] VITALS: BP 133/86; PULSE 87; RESP 18; TEMP 36.6; O2SAT 100
[2020-07-25] MEDS: CEPHALEXIN 250 MG CAPSULE PO ×3 (05:28→21:13)
[2020-07-25 05:41] VITALS: BP 144/93; PULSE 88; RESP 20; TEMP 36.7; O2SAT 98
[2020-07-25 06:19] LABS: Estimated CRCL calculation 32 ml/min; Estimated Glomerular Filt Rate 36
[2020-07-25 08:15] LABS: Glucose Point of Care 100 (65-105)
[2020-07-25 10:11] VITALS: PULSE 80
[2020-07-25] MEDS: METOPROLOL SUCCINATE EXT REL 50 MG TABCR PO (10:11)
[2020-07-25] MEDS: SILVERGEL (ELTA) 45 ML 1 APPLIC TOPICAL (10:13)
[2020-07-25] MEDS: ENOXAPARIN 40 MG/0.4 ML SYRINGE SUB-Q (10:13)
[2020-07-25] MEDS: TIMOLOL MALEATE 0.5% OP SOLN 5 ML BOTTLE 1 DROP EACH EYE (10:13)
[2020-07-25] MEDS: COLESEVELAM 625 MG TABLET 3750 MG PO (10:14)
[2020-07-25] MEDS: SACCHAROMYCES BOULARDII 250 MG CAPSULE PO ×2 (10:14→16:54)
[2020-07-25] MEDS: ASPIRIN 81 MG ENTERIC TABLET PO (10:15)
[2020-07-25] MEDS: BRIMONIDINE TARTRATE 0.2% OP SOLN 5 ML BTL 1 DROP EACH EYE (10:15)
[2020-07-25] MEDS: CYANOCOBALAMIN 500 MCG TABLET PO (10:15)
[2020-07-25] MEDS: DOXYCYCLINE HYCLATE 100 MG TABLET PO ×2 (10:15→21:13)
[2020-07-25] MEDS: methiMAzole 5 MG TAB PO (10:15)
[2020-07-25] MEDS: FOLIC ACID 1 MG TABLET PO (10:16)
[2020-07-25] MEDS: OLMESARTAN MEDOXOMIL 20 MG TABLET PO (10:16)
[2020-07-25] MEDS: EZETIMIBE 10 MG TABLET PO (10:16)
[2020-07-25 11:42] LABS: Glucose Point of Care 111 (65-105)
--- NOTE | 2020-07-25 12:52 | PCDIET ---
Weekly nutritional screen. Patient is tolerating current diet with adequate intake, 80% average of all meals. No weight loss reported. Bowels moving. Lab unremarkable. No nutritional needs at this time.
[2020-07-25 14:00] VITALS: BP 98/60; PULSE 86; RESP 18; TEMP 36.6; O2SAT 98
--- NOTE | 2020-07-25 14:13 | PM.IMPN ---
Progress Note: A&P Assessment and Plan (1) Discharge planning issues: Code(s): Z02.9 - Encounter for administrative examinations, unspecified Status: Acute Assessment and Plan: Patient was set up to go home with home health but is very weak today. At this time I am worried about her going home, she has no family nearby to check in on her and she was otherwise independent completely prior to hospitalization. Care coordination working on insurance authorizations and options for possible acute rehab facility (which I feel would be great for her with how active she normally is at home with activities, driving everyday) versus SNF. Continue PT/OT at this time. Patient was a Min to go from sitting to standing which is concerning for her to be going home alone. She walked a few times, but was very fatigued, needed to stop frequently. Believe she will need SNF placement. (2) Hypotension: Code(s): I95.9 - Hypotension, unspecified Status: Acute Assessment and Plan: 07/20/20- BP this morning was still low at 105/56. Could be from over diuresis, she is asymptomatic. Held her HCTZ, Amlodipine and Benicar 07/20-Then restarted HCTZ and Benicar 07/21/20. Rechecked BP at noon and it was 89/56 sitting in the chair and with standing she increased to 107/71. I believe we over diuresised her. Will give IV fluid hydration LR 75 cc/hr for 1 liter. 07/25/20-patient's blood pressure improved 144/93 after IV fluids were given yesterday. Restarted Benecar 20 mg today. Monitor BP and consider restarting HCTZ due to leg swelling. Discontinue Amlodipine all together. She denies any lightheadedness or dizziness with sitting up or walking Will continue monitoring BP, recheck labs in the morning. (3) Cellulitis of left leg: Code(s): L03.116 - Cellulitis of left lower limb Status: Acute Assessment and Plan: Patient has cellulitis of her left lower extremity. Given that she is prediabetic, place patient on antibiotic therapy with vancomycin and will add Primaxin. The patient's does have chronic venous stasis dermatitis and likely has increased dependent lower extremity edema due to her sleeping sitting up in a chair. Cellulitis is improving, no more warmth to extremities, open wounds noted, some slight erythema but mostly from chronic venous stasis changes. Will continue antibiotics orally as outpatient Doxycycline and Keflex for 1 more day of therapy. (4) QT prolongation: Code(s): R94.31 - Abnormal electrocardiogram [ECG] [EKG] Status: Acute Assessment and Plan: Initially it was 455 (Borderline long) Day #1 of Doxycycline which is known to cause QTc prologation. EKG shows lengthening of QTc 470. Day #2 of Doxycycline yesterday showed QTc 442. Doing well, and only a few more doses left. No longer trending up. Will quit checking EKGs at this point. (5) Edema: Qualifiers: Edema type: unspecified Qualified Code(s): R60.9 - Edema, unspecified Code(s): R60.9 - Edema, unspecified Status: Acute Assessment and Plan: Echo results rule out CHF cause, most likely from chronic venous insufficiency and venous stasis. Echo showing normal EF and diastolic function. Venous Dopplers negative for DVT. Continue monitoring with SQ lovenox 40 mg daily. Improved with diuresis. (6) Obstructive sleep apnea: Code(s): G47.33 - Obstructive sleep apnea (adult) (pediatric) Status: Acute Assessment and Plan: Auto titrating cPAP has been ordered as needed for sleep. (7) Atrial fibrillation, controlled: Code(s): I48.91 - Unspecified atrial fibrillation Status: A
[2020-07-25 17:21] LABS: Glucose Point of Care 66 (65-105)
[2020-07-25] MEDS: LATANOPROST 0.005% OP SOLN 2.5 ML BTL 1 DROP EACH EYE (21:13)
[2020-07-25 21:19] LABS: Glucose Point of Care 47 (65-105)
[2020-07-25 21:33] VITALS: BP 129/83; PULSE 81; RESP 20; TEMP 37.1; O2SAT 96
[2020-07-25 22:10] LABS: Glucose Point of Care 124 (65-105)
[2020-07-26 02:32] LABS: Glucose Point of Care 88 (65-105)
[2020-07-26 02:32] LABS: Glucose Point of Care 106 (65-105)
[2020-07-26 05:36] VITALS: BP 119/67; PULSE 78; RESP 18; TEMP 36.6; O2SAT 95
[2020-07-26] MEDS: CEPHALEXIN 250 MG CAPSULE PO ×3 (06:27→21:53)
[2020-07-26 07:22] LABS: Glucose Point of Care 91 (65-105)
[2020-07-26 08:34] VITALS: PULSE 78
[2020-07-26] MEDS: METOPROLOL SUCCINATE EXT REL 50 MG TABCR PO (08:34)
[2020-07-26] MEDS: ASPIRIN 81 MG ENTERIC TABLET PO (08:35)
[2020-07-26] MEDS: EZETIMIBE 10 MG TABLET PO (08:35)
[2020-07-26] MEDS: SACCHAROMYCES BOULARDII 250 MG CAPSULE PO ×2 (08:35→16:44)
[2020-07-26] MEDS: BRIMONIDINE TARTRATE 0.2% OP SOLN 5 ML BTL 1 DROP EACH EYE (08:35)
[2020-07-26] MEDS: FOLIC ACID 1 MG TABLET PO (08:35)
[2020-07-26] MEDS: methiMAzole 5 MG TAB PO (08:35)
[2020-07-26] MEDS: CYANOCOBALAMIN 500 MCG TABLET PO (08:35)
[2020-07-26] MEDS: TIMOLOL MALEATE 0.5% OP SOLN 5 ML BOTTLE 1 DROP EACH EYE (08:35)
[2020-07-26] MEDS: COLESEVELAM 625 MG TABLET 3750 MG PO (08:35)
[2020-07-26] MEDS: ENOXAPARIN 40 MG/0.4 ML SYRINGE SUB-Q (08:36)
[2020-07-26] MEDS: hydroCHLOROthiazide 12.5 MG CAPSULE PO (08:38)
[2020-07-26] MEDS: OLMESARTAN MEDOXOMIL 20 MG TABLET PO (08:38)
[2020-07-26] MEDS: SILVERGEL (ELTA) 45 ML 1 APPLIC TOPICAL (08:39)
--- NOTE | 2020-07-26 10:54 | P.PNIM_ITS ---
Progress Note: A&P Assessment and Plan (1) Discharge planning issues: Code(s): Z02.9 - Encounter for administrative examinations, unspecified Status: Acute Assessment and Plan: * Patient notes generalized weakness while being hospitalized. * Concerned for her going home as she has no family nearby to check in on her and she was otherwise independent completely prior to hospitalization. * Continue PT/OT. Dispo is SNF. Awaiting insurance authorization and COVID testing; anticipate possible discharge tomorrow. (2) Hypotension: Code(s): I95.9 - Hypotension, unspecified Status: Acute Assessment and Plan: * Issues with hypotension in days past and her home medications were held, BPs now improved and her medications have been added back. * Amlodipine discontinued due to hypotension and leg swelling. She denies dizziness with sitting up or walking. * Continue her home olmesartan, HCTZ, metoprolol. Monitor BP and adjust treatment as needed. (3) Cellulitis of left leg: Code(s): L03.116 - Cellulitis of left lower limb Status: Acute Assessment and Plan: * Reason for ED evaluation. Improving on antibiotic therapy initially with broad spectrum vancomycin and imipenem now transitioned to oral ABX. * Continue oral Doxycycline and Keflex through today to complete 10-day total course of abx. (4) QT prolongation: Code(s): R94.31 - Abnormal electrocardiogram [ECG] [EKG] Status: Acute Assessment and Plan: * Initially borderline prior to starting doxycycline. Stable, last day of doxy dose. (5) Edema: Qualifiers: Edema type: unspecified Qualified Code(s): R60.9 - Edema, unspecified Code(s): R60.9 - Edema, unspecified Status: Acute Assessment and Plan: * Suspect related to chronic venous insufficiency and venous stasis. * Echo showing normal EF and diastolic function. * Venous Dopplers negative for DVT. Continue monitoring with SQ lovenox 40 mg daily. * Improved with diuresis. (6) Obstructive sleep apnea: Code(s): G47.33 - Obstructive sleep apnea (adult) (pediatric) Status: Chronic Assessment and Plan: * CPAP. (7) Atrial fibrillation, controlled: Code(s): I48.91 - Unspecified atrial fibrillation Status: Chronic Assessment and Plan: * Rate controlled on home metoprolol. She is not on long-term anticoagulation. * EKG on arrival showed Afib HR 81 bpm. (8) Diabetes mellitus: Qualifiers: Diabetes mellitus type: type 2 Diabetes mellitus predatory animal exterminator insulin use: without predatory animal exterminator use Diabetes mellitus complication status: without complication Qualified Code(s): E11.9 - Type 2 diabetes mellitus without complications Code(s): E11.9 - Type 2 diabetes mellitus without complications Status: Chronic Assessment and Plan: * Hemoglobin A1c was 6.0%. Continue oral home medications. Follow up with PCP. (9) Elevated C-reactive protein: Code(s): R79.82 - Elevated C-reactive protein (CRP) Status: Acute Assessment and Plan: * Cellulitis improving. No shortness of breath, chest pain, nausea, vomiting, diarrhea or pain. Afebrile.
--- NOTE | 2020-07-26 10:54 | PM.IMPN ---
Progress Note: A&P Assessment and Plan (1) Discharge planning issues: Code(s): Z02.9 - Encounter for administrative examinations, unspecified Status: Acute Assessment and Plan: Patient notes generalized weakness while being hospitalized. Concerned for her going home as she has no family nearby to check in on her and she was otherwise independent completely prior to hospitalization. Continue PT/OT. Dispo is SNF. Awaiting insurance authorization and COVID testing; anticipate possible discharge tomorrow. (2) Hypotension: Code(s): I95.9 - Hypotension, unspecified Status: Acute Assessment and Plan: Issues with hypotension in days past and her home medications were held, BPs now improved and her medications have been added back. Amlodipine discontinued due to hypotension and leg swelling. She denies dizziness with sitting up or walking. Continue her home olmesartan, HCTZ, metoprolol. Monitor BP and adjust treatment as needed. (3) Cellulitis of left leg: Code(s): L03.116 - Cellulitis of left lower limb Status: Acute Assessment and Plan: Reason for ED evaluation. Improving on antibiotic therapy initially with broad spectrum vancomycin and imipenem now transitioned to oral ABX. Continue oral Doxycycline and Keflex through today to complete 10-day total course of abx. (4) QT prolongation: Code(s): R94.31 - Abnormal electrocardiogram [ECG] [EKG] Status: Acute Assessment and Plan: Initially borderline prior to starting doxycycline. Stable, last day of doxy dose. (5) Edema: Qualifiers: Edema type: unspecified Qualified Code(s): R60.9 - Edema, unspecified Code(s): R60.9 - Edema, unspecified Status: Acute Assessment and Plan: Suspect related to chronic venous insufficiency and venous stasis. Echo showing normal EF and diastolic function. Venous Dopplers negative for DVT. Continue monitoring with SQ lovenox 40 mg daily. Improved with diuresis. (6) Obstructive sleep apnea: Code(s): G47.33 - Obstructive sleep apnea (adult) (pediatric) Status: Chronic Assessment and Plan: CPAP. (7) Atrial fibrillation, controlled: Code(s): I48.91 - Unspecified atrial fibrillation Status: Chronic Assessment and Plan: Rate controlled on home metoprolol. She is not on long-term anticoagulation. EKG on arrival showed Afib HR 81 bpm. (8) Diabetes mellitus: Qualifiers: Diabetes mellitus type: type 2 Diabetes mellitus skilled nursing insulin use: without skilled nursing use Diabetes mellitus complication status: without complication Qualified Code(s): E11.9 - Type 2 diabetes mellitus without complications Code(s): E11.9 - Type 2 diabetes mellitus without complications Status: Chronic Assessment and Plan: Hemoglobin A1c was 6.0%. Continue oral home medications. Follow up with PCP. (9) Elevated C-reactive protein: Code(s): R79.82 - Elevated C-reactive protein (CRP) Status: Acute Assessment and Plan: Cellulitis improving. No shortness of breath, chest pain, nausea, vomiting, diarrhea or pain. Afebrile. Subjective Date/time seen: 07/26/20 10:45 Interval history: Ms. Chen is an 80yo F admitted for left lower leg cellulitis and generalized weakness. She reports feeling pretty well today, slept ok and had some breakfast this morning. She denies any pain, no chest pain or shortness of breath. No abdominal pain, nausea or vomiting. Feels her leg is improving. Review of Systems R
[2020-07-26 12:02] LABS: Glucose Point of Care 135 (65-105)
[2020-07-26 14:00] VITALS: BP 97/67; PULSE 80; RESP 18; TEMP 36.7; O2SAT 94
--- NOTE | 2020-07-26 15:13 | PCOTNOTE ---
The OT treatment session could not be completed today. Will continue plan of care tomorrow, 07/27/20.
[2020-07-26 16:47] LABS: Glucose Point of Care 104 (65-105)
[2020-07-26 19:03] LABS: SARS-CoV-2 RNA PCR Negative
[2020-07-26 20:00] VITALS: RESP 18; O2SAT 94
[2020-07-26] MEDS: LATANOPROST 0.005% OP SOLN 2.5 ML BTL 1 DROP EACH EYE (21:53)
[2020-07-26 22:00] VITALS: BP 150/90; PULSE 83; RESP 20; TEMP 36.6; O2SAT 95
[2020-07-26 22:51] LABS: Glucose Point of Care 97 (65-105)
[2020-07-27] MEDS: CEPHALEXIN 250 MG CAPSULE PO (05:33)
[2020-07-27 06:00] VITALS: BP 116/73; PULSE 78; RESP 20; TEMP 36.7; O2SAT 95
[2020-07-27] MEDS: SILVERGEL (ELTA) 45 ML 1 APPLIC TOPICAL (08:14)
[2020-07-27] MEDS: BRIMONIDINE TARTRATE 0.2% OP SOLN 5 ML BTL 1 DROP EACH EYE (08:14)
[2020-07-27] MEDS: ENOXAPARIN 40 MG/0.4 ML SYRINGE SUB-Q (08:14)
[2020-07-27] MEDS: TIMOLOL MALEATE 0.5% OP SOLN 5 ML BOTTLE 1 DROP EACH EYE (08:14)
[2020-07-27] MEDS: CYANOCOBALAMIN 500 MCG TABLET PO (08:14)
[2020-07-27 08:15] VITALS: PULSE 78
[2020-07-27] MEDS: SACCHAROMYCES BOULARDII 250 MG CAPSULE PO (08:15)
[2020-07-27] MEDS: OLMESARTAN MEDOXOMIL 20 MG TABLET PO (08:15)
[2020-07-27] MEDS: METOPROLOL SUCCINATE EXT REL 50 MG TABCR PO (08:15)
[2020-07-27] MEDS: FOLIC ACID 1 MG TABLET PO (08:16)
[2020-07-27] MEDS: EZETIMIBE 10 MG TABLET PO (08:16)
[2020-07-27] MEDS: methiMAzole 5 MG TAB PO (08:16)
[2020-07-27] MEDS: hydroCHLOROthiazide 12.5 MG CAPSULE PO (08:16)
[2020-07-27] MEDS: ASPIRIN 81 MG ENTERIC TABLET PO (08:16)
[2020-07-27] MEDS: COLESEVELAM 625 MG TABLET 3750 MG PO (08:16)
[2020-07-27 08:31] LABS: Glucose Point of Care 88 (65-105)
--- NOTE | 2020-07-27 10:54 | PM.DS ---
DS: Admitting Diagnosis Admitting Diagnosis Admitting Diagnosis: Cellulitis left leg DS: Discharge Diagnosis Discharge Diagnosis (1) Discharge planning issues: Code(s): Z02.9 - Encounter for administrative examinations, unspecified Status: Acute Assessment and Plan: Date of Admission 07/18/20 Date of Discharge/DOS 07/27/20 Ms. Chen is an 80yo F with history of prediabetes, chronic atrial fibrillation, hypertension who presented to the ED for evaluation of left lower extremity wounds with redness, pain, and swelling. She was treated in the hospital for lower extremity edema and cellulitis. She was diuresed with 2 doses of IV Lasix which improved her lower extremity swelling. She was started on IV antibiotic therapy initially with vancomycin and Primaxin. After showing clinical improvement she was then transitioned to oral antibiotic therapy with doxycycline and Keflex and she has completed a 10 day course antibiotics here at the hospital. She had some hypotension and initially all of her home antihypertensives were held. Her blood pressures then improved and her home olmesartan and hydrochlorothiazide were added back. Her home amlodipine is discontinued at this time due to leg swelling and hypotension. She has been tolerating this regimen well for few days prior to discharge. Follow-up with PCP for management of hypertension and her blood pressures can be monitored at [facility] facility in the interim. She is in atrial fibrillation which is chronic for her and heart rates were controlled on her home metoprolol. Originally home health therapy was arranged, but then patient no longer felt comfortable with this discharge plan as she noted generalized weakness and explained that she does not have any family nearby to help check in on her at home. She is most comfortable with discharge planning to [facility] facility to continue PT/OT. She is hemodynamically stable for discharge on 07/27/2020 to continue therapy at [facility] facility. Patient notes generalized weakness while being hospitalized. Discharge to SNF. (2) Hypotension: Code(s): I95.9 - Hypotension, unspecified Status: Acute Assessment and Plan: Issues with hypotension in days past and her home medications were held, BPs now improved and her medications have been added back. Amlodipine discontinued due to hypotension and leg swelling. She denies dizziness with sitting up or walking. Continue her home olmesartan, HCTZ, metoprolol. Monitor BP and adjust treatment as needed. (3) Cellulitis of left leg: Code(s): L03.116 - Cellulitis of left lower limb Status: Acute Assessment and Plan: Reason for ED evaluation. Improving on antibiotic therapy initially with broad spectrum vancomycin and imipenem now transitioned to oral ABX. She received 10 day total course of antibiotics at the hospital. (4) QT prolongation: Code(s): R94.31 - Abnormal electrocardiogram [ECG] [EKG] Status: Acute Assessment and Plan: Initially borderline prior to starting doxycycline. Stable, last day of doxy dose. (5) Edema: Qualifiers: Edema type: unspecified Qualified Code(s): R60.9 - Edema, unspecified Code(s): R60.9 - Edema, unspecified Status: Acute Assessment and Plan: Suspect related to chronic venous insufficiency and venous stasis. Echo showing normal EF and diastolic function. Venous Dopplers negative for DVT. She was treated with Lovenox 40 mg daily for DVT prophylaxis. Edema improved with diuresis. Educated on elevating her legs and monitoring her fluid status, low-sodium diet. (6) Obstructive sleep apnea: C
--- NOTE | 2020-07-27 11:48 | PC.NURSE ---
Report Called to Delia at [facility]
[2020-07-27 12:21] LABS: Glucose Point of Care 127 (65-105)
[2020-07-27 14:00] VITALS: BP 158/88; PULSE 73; RESP 18; TEMP 36.6; O2SAT 100
== END 2020-07-27 15:00 | DRG 603 ==
LOC: ANHED 21:19 → ANH3MEDSUR 07-19 07:36
PROVIDERS: Physician Assistant; Admitting Provider Internal Medicine; Emergency Provider Family Medicine; PCP Internal Medicine; Visit Provider Physician Assistant
DX: L03.116 Cellulitis of left lower limb (principal); I48.20 Chronic atrial fibrillation, unspecified; Z20.822 Contact with and (suspected) exposure to COVID-19; I12.9 Hypertensive chronic kidney disease with stage 1 through stage 4 chronic kidney disease, or unspecified chronic kidney disease; E11.22 Type 2 diabetes mellitus with diabetic chronic kidney disease; E11.42 Type 2 diabetes mellitus with diabetic polyneuropathy; N18.9 Chronic kidney disease, unspecified; R60.9 Edema, unspecified; I95.9 Hypotension, unspecified; R53.1 Weakness; R94.31 Abnormal electrocardiogram [ECG] [EKG]; I87.2 Venous insufficiency (chronic) (peripheral); G47.33 Obstructive sleep apnea (adult) (pediatric); R79.82 Elevated C-reactive protein (CRP); M89.49 Other hypertrophic osteoarthropathy, multiple sites; E78.5 Hyperlipidemia, unspecified; H40.9 Unspecified glaucoma; Z23 Encounter for immunization; Z74.2 Need for assistance at home and no other household member able to render care; Z79.82 Long term (current) use of aspirin; Z79.899 Other long term (current) drug therapy; Z85.528 Personal history of other malignant neoplasm of kidney; Z90.5 Acquired absence of kidney; Z98.42 Cataract extraction status, left eye; Z98.41 Cataract extraction status, right eye; Z96.1 Presence of intraocular lens
CPT/HCPCS: 36415; 71046; 80048; 80053; 82565; 82948; 83036; 83605; 83735; 83880; 85025; 85027; 85610; 85730; 86140; 87040; 90471; 90653; 93005; 93970; 96374; 97110; 97116; 97161; 97165; 97530; 97535; 99285; A9270; C8929; C9803; G0008; J0690; J0743; J1650; J1940; J3370; J7120; Q9957; U0003; U0005

== ENCOUNTER 2020-09-26 14:28 | Outpatient (NON) | payer MEDICARE, SELFPAY ==
[2020-09-26 15:07] LABS: Add Urine Microscopic? YES; Appearance Urine Cloudy (Clear); Bacteria Urine Trace /hpf; Bilirubin Urine Negative (Negative); Blood Urine Negative (Negative); Color Urine Yellow (Yellow); Glucose Urine UA Negative (Negative); Ketones Urine Negative (Negative); Leukocyte Esterase Ur 3+ LEU/UL (NEGATIVE); Mucus Urine Rare /lpf; Nitrate Urine Negative (Negative); Protein Urine 1+ mg/dL (Negative); Specific Grav Ur 1.021 (1.001-1.035); Squamous Epithelial Cell Urine Rare /hpf (Few); WBC Clumps Urine Present /HPF; WBC Urine >75 /hpf (0-3)
[2020-09-26 15:09] LABS: Basophils Absolute Auto 0.1 K/mm3 (0.0-0.1); Basophils Percent Auto 0.5 % (0.2-1.2); Eosinophils Absolute Auto 0.4 K/mm3 (0-0.3); Hematocrit 47.1 % (37.0-47.0); Hemoglobin 14.9 g/dL (12.0-15.0); Immature Granulocyte Absolute 0.07 K/mm3 (0.00-0.031); Immature Granulocyte Percent A 0.7 % (0-0.5); Lymphocytes Absolute Auto 1.13 K/mm3 (0.9-3.2); Lymphocytes Percent Auto 10.6 % (18.3-44.2); Mean Corpuscular HGB Conc 31.6 g/dl (32-36); Mean Corpuscular Hemoglobin 28.1 pg (26-34); Mean Corpuscular Volume 88.7 fl (80-100); Mean Platelet Volume 11.7 fl (7.4-10.4); Monocytes Absolute Auto 1.1 K/mm3 (0.1-0.6); Monocytes Percent Auto 10.2 % (2.6-8.5); Neutrophils Absolute Auto 7.9 K/mm3 (1.3-6.7); Platelet Count Result 295 k/mm3 (150-375); Red Blood Count 5.31 M/mm3 (4.2-5.4); Red Cell Distribution Width 15.4 % (11.5-14.5); White Blood Count 10.7 K/mm3 (4.5-10.0)
[2020-09-26 16:23] LABS: Anion Gap 12 mmol/L (8-16); Blood Urea Nitrogen 28 mg/dL (7-17); Carbon Dioxide 24 mmol/L (22-30); Chloride 107 mmol/L (98-107); Cholesterol 163 mg/dL (0-200); Estimated Glomerular Filt Rate 36; Glucose 102 mg/dL (65-105); HDL Direct 36 mg/dL; Potassium 4.1 mmol/L (3.4-5.0); Sodium 143 mmol/L (137-145); Triglycerides 196 mg/dL (<150)
[2020-09-26 16:36] LABS: LDL Cholesterol Direct 75 mg/dL
[2020-09-26 19:02] LABS: Hemoglobin A1C 5.8 % (<5.7)
== END 2020-09-26 14:29 | disposition home or self-care (01) ==
PROVIDERS: PCP Internal Medicine; Visit Provider Internal Medicine
DX: E04.2 Nontoxic multinodular goiter (principal); I10 Essential (primary) hypertension; Z79.899 Other long term (current) drug therapy
CPT/HCPCS: 36415; 80048; 80061; 81001; 83036; 84439; 84443; 85025

== ENCOUNTER 2021-03-30 15:50 | Observation (INO) | payer MEDICARE, SELFPAY ==
--- NOTE | ~2021-03-30 | MR_ITS ---
EXAMINATION: MR knee LT wo con DATE: 03/31/2021 11:57 INDICATION: Left knee pain post fall. TECHNIQUE: Magnetic resonance imaging (MRI) of the left knee was performed without intravenous contra st. Sequences included coronal PD-weighted FSE, coronal PD-weighted FS FSE, sagittal T2-weighted FSE , sagittal PD-weighted FS FSE and axial PD weighted fat saturated FSE. COMPARISON: Left knee radiograph dated 03/30/2021 FINDINGS: Medial compartment: Complex medial meniscal tear with longitudinal horizontal tear plane and likely secondary degeneratio n of the medial extruded medial meniscal body. The posterior horn is diminutive with significant loss of meniscal tissue. Extensive full/near full-thickness cartilage loss with mild underlying subarticu lar increased marrow signal along the majority of the medial tibial plateau and weightbearing medial femoral condyle. There is early remodeling along the central to medial aspect of the medial tibial pl ateau. Large marginal osteophytes are present. Lateral compartment: Longitudinal horizontal tear extending from the anterior to the posterior horn of the lateral meniscu s. Partial-thickness radial tear near the posterior root. Deep chondral fissuring with minimal underl rigo subarticular marrow signal change at the lateral tibial plateau. Additional deep chondral fissur ing along the anterior weightbearing lateral femoral condyle. Mild partial-thickness cartilage loss a long the posterior weightbearing lateral femoral condyle. Moderate size marginal osteophytes are pres ent. Patellofemoral compartment: Additional extensive full and near full-thickness cartilage loss along significant portions of the pa tella and trochlea, medially, centrally and laterally. Moderate size marginal osteophytes are present . Ligaments and tendons: Posterior cruciate ligament is normal. Complete tear of the anterior cruciate ligament. The medial co llateral ligament and fibular collateral ligament complex are normal. Lumbar enthesopathy and moderat e sized osteophytes at the patellar insertion of the quadriceps tendon. Patellar tendon is normal wit h some bands of magic angle artifact associated with mild undulations in the tendon. The visualized m edial and lateral hamstring tendons as well as the iliotibial band are normal. Fluid: Moderate-sized left knee joint effusion. There is 3.6 x 2.0 x 1.7 cm globular region of fat which fam ears freely floating within the suprapatellar pouch corresponding in location to the region of calcif ication on the prior radiograph suggesting this represents a large loose body. Severe subcutaneous ed james about the left knee. Osseous/other: Bone alignment is normal. No fracture or pathologic marrow replacing process. IMPRESSION: 1. Complete tear of the anterior cruciate ligament. 2. Medial and lateral meniscal tears. 3. Severe medial and patellofemoral compartment osteoarthritis and mild osteoarthritis with moderate grade chondromalacia in the lateral compartment. 4. 2.6 x 2.0 x 1.7 cm loose body at the suprapatellar pouch which likely accounts for the calcific de nsity projecting over this region on the prior radiographs. Reviewed, dictated and finalized at location B. PATIONAL THER IMPRESSION: 1. Complete tear of the anterior cruciate ligament. 2. Medial and lateral meniscal tears. 3. Severe medial and patellofemoral compartment osteoarthritis and mild osteoar thritis with moderate grade chondromalacia in the lateral compartment. 4. 2.6 x 2.0 x 1.7 cm loose body at the suprapatellar pouch which likely accoun ts for the calcific density projecting over this region on the prior radiograph s.
--- NOTE | ~2021-03-30 | XR_ITS ---
EXAMINATION: XR knee LT 3V EXAM DATE: 03/30/2021 18:15 INDICATION: PT Fell Two Days Ago And C/O Left Knee Pain On The Posterior Side Of The Knee. TECHNIQUE: Three projections of the left knee. There is no prior study for comparison. FINDINGS: There is moderate to severe left knee primary osteoarthritis. Appearance to the posterior s uperior margin of patellar enthesopathy on lateral projection could indicate acute fracture through t his portion of patella, check for point tenderness at this location. Finding has been indicated on ex am. The quadriceps tendon appears to be intact. There is moderate sized left knee joint effusion with amorphous calcification overlying this, could be joint bodies. IMPRESSION: 1. Suspicion of acute patellar superior enthesopathy fracture. 2. Moderate-sized joint effusion. 3. Moderate to severe osteoarthritis. 4. Probable joint bodies. Reviewed, dictated and finalized at location A. TRICAL CAD TECHNICIAN
[2021-03-30 15:53] VITALS: BP 150/114; PULSE 116; RESP 20; TEMP 36.8; O2SAT 99
[2021-03-30 17:42] VITALS: BP 148/78; PULSE 96; RESP 18; O2SAT 99
--- NOTE | 2021-03-30 20:04 | PM.IMHP ---
H&P: HPI History of Present Illness Date/Time: 03/30/21 20:04 Chief Complaint: Weakness Narrative: This is an 80-year-old female with past medical history significant for atrial fibrillation, aortic valve disease, obesity, chronic kidney disease, chronic lymphedema, diabetes mellitus, chronic venous stasis dermatitis, hypertension, hyperlipidemia, hyperthyroidism, obstructive sleep apnea, peripheral and polyneuropathy. Patient was brought to the emergency room after she was unable to get up from sitting position while using the toilet had to call EMS and was brought to the emergency room for further evaluation. Patient states that she sustained a fall from ground level, no loss of consciousness, apparently patient was able to get up on her own and she has been able to walk using her walker however after 2 days she has noticed increasingly worsening generalized weakness and unable to get up from sitting position. Patient has been her usual state of health she denies any fevers, rigors, chills, nausea ,vomiting, abdominal pain, diarrhea ,dizziness, lightheadedness, loss of consciousness, shortness of breath, cough, sputum production, no palpitations, no PND, no orthopnea. Preliminary workup was significant for left knee x-ray suspicion of acute patellar superior enthesopathy fracture,moderate-sized joint effusion,moderate to severe osteoarthritis. Review of Systems Review of Systems: Fall, generalized weakness. Constitutional: Constitutional: Denies chills, Denies fatigue, Denies fever(s), Denies malaise, Denies night sweats and Reports weakness Eyes: Eyes: Denies change in vision ENT: Denies dysphagia, Denies vertigo, Denies dizziness, Denies nasal congestion, Denies nasal discharge, Denies nasal obstruction and Denies odynophagia Cardiovascular: Cardiovascular: Reports pedal edema, Denies irregular heart rhythm, Reports leg edema, Denies lightheadedness, Denies radiating jaw, neck or arm pain, Denies palpitations, Denies dyspnea on exertion and Denies orthopnea Respiratory: Respiratory: Denies change in phlegm color, Denies cough, Denies excessive phlegm production and Denies dyspnea Gastrointestinal: Gastrointestinal: Denies abdominal pain, Denies dyspepsia, Denies heartburn, Denies diarrhea, Denies nausea and Denies vomiting Genitourinary: Genitourinary: Denies dysuria Musculoskeletal: Musculoskeletal: Reports arthralgias (Left knee), Reports joint swelling, Reports limited range of motion and Reports muscle weakness Integumentary/Breasts: Skin/Breast: Denies rash and Denies wounds Neurologic: Denies syncope, Denies focal weakness and Denies Sensory deficit (Neuro) Psychiatric: Psychiatric: Reports no additional psychiatric complaints and Reports as per HPI Endocrine: Endocrine: Reports no additional endocrine complaints and Reports as per HPI Hematologic/Lymphatic: Hematologic/Lymphatic: Reports no additional hematologic/lymphatic complaints and Reports as per HPI Allergic/Immunologic: Allergic/Immunologic: Reports no additional allergic/immunologic complaints and Reports as per HPI [facility] Past Medical History Medical History (Updated 03/31/21 @ 00:44 by Anthony Cast MD) Aortic valve disease Atrial fibrillation, controlled BMI 36.0-36.9,adult BMI 38.0-38.9,adult Cellulitis Chronic kidney disease Baseline creatinine between 1.5 and 1.6 Chronic venous stasis dermatitis Diabetes mellitus Diabetes mellitus with hyperglycemia Essential (primary) hypertension Follow up Glaucoma Hx of malignant neoplasm of kidney Hyperlipidemia Hyperthyroidism Multinodular goiter Obstructive sleep apnea Peripheral polyneuropathy Primary osteoarthritis involving multiple joints Statin intolerance Surgical History Surgical History History of nephrectomy Left nephrectomy due to kidney cancer Status post cataract extraction of both eyes with insertion of intraocular lens Family H
--- NOTE | 2021-03-30 20:21 | ED.GENADULT ---
HPI - General Adult General Chief complaint: Extremity Injury, Lower <Azucena Villanueva PA-C - Last Filed: 03/30/21 20:29> Stated complaint: Fall 2 days ago. Left knee pain <Azucena Villanueva PA-C - Last Filed: 03/30/21 20:29> Time Seen by Provider: 03/30/21 17:36 <Azucena Villanueva PA-C - Last Filed: 03/30/21 20:29> Source: patient and family (nephew) <Azucena Villanueva PA-C - Last Filed: 03/30/21 20:29> Mode of arrival: wheelchair <ROSALIO Garcia Last Filed: 03/30/21 20:29> Limitations: no limitations <Azucena Villanueva PA-C - Last Filed: 03/30/21 20:29> History of Present Illness HPI narrative: Patient is a 80-year-old female with chief complaint of left knee pain that began after a fall in her bathroom 2 days ago. Patient states that her nephew and the fire department assisted her in getting up and there was only mild knee pain at the time but over the past few days it has become more more painful and she cannot stand today and ambulate. Patient reports that she generally uses a walker to assist with her ambulation. Patient reports that she has chronic swelling to her lower extremities. She reports this is not changed recently. Patient denies any pain or impact or loss of consciousness. Patient denies any changes in her vision or hearing. Patient denies any chest pain or shortness of breath. <Azucena Villanueva PA-C - Last Filed: 03/30/21 20:29> Related Data Home medications: Home Medications Medication Instructions Recorded Confirmed aspirin 81 mg tablet,delayed 81 mg PO DAILY 12/17/19 09/28/20 release colesevelam 3.75 gram oral powder 3,750 mg PO DAILY 12/17/19 09/28/20 packet netarsudil 0.02 % eye drops 1 drop EACH EYE HS 12/17/19 09/28/20 omega-3 fatty acids 1,000 mg 1,500 mg PO DAILY cap 12/17/19 09/28/20 capsule Combigan 1 drp EACH EYE DAILY 07/19/20 09/28/20 Lumigan 1 drp EACH EYE DAILY 07/19/20 09/28/20 Tradjenta 5 mg PO DAILY 07/19/20 09/28/20 cyanocobalamin (vitamin B-12) 500 mcg PO DAILY 07/19/20 09/28/20 ezetimibe 10 mg PO DAILY 07/19/20 09/28/20 <Azucena Villanueva PA-C - Last Filed: 03/30/21 20:29> Allergies/adverse reactions: Allergies Allergy/AdvReac Type Severity Reaction Status Date / Time codeine Allergy Unknown Unknown Verified 09/28/20 14:51 [id number]-GyS Reductase Allergy Unknown Unknown Verified 09/28/20 14:51 Inhibitor [Nflbzfp-Qhj-Enu Reductase Inhibitor] Sulfa (Sulfonamide Allergy Unknown Unknown Verified 09/28/20 14:51 Antibiotics) sulfanilamide Allergy Unknown Unknown Verified 09/28/20 14:51 <Azucena Villanueva PA-C - Last Filed: 03/30/21 20:29> Review of Systems Review of Systems: CONSTITUTIONAL: Denies fever, chills, or sweats. EYES: Denies visual changes, redness, or discharge. ENT: Denies rhinorrhea, congestion, sore throat, or otalgia. CARDIOVASCULAR: Denies chest pain, palpitations, or edema. RESPIRATORY: Denies cough or dyspnea. GASTROINTESTINAL: Denies abdominal pain, nausea, vomiting, or diarrhea. GENITOURINARY: Denies dysuria or hematuria. SKIN: Denies rash or itching. MUSCULOSKELETAL: Reports left knee pain denies back pain or myalgia. NEUROLOGIC: Denies headache, numbness, dizziness, or weakness. PSYCHIATRIC: Denies anxiety or depression. <Azucena Villanueva PA-C - Last Filed: 03/30/21 20:29> [facility] Past Medical History Medical History: Medical History (Updated 03/30/21 @ 20:29 by Azucena Villanueva PA-C) Aortic valve disease Atrial fibrillation, controlled BMI 36.0-36.9,adult BMI 38.0-38.9,adult Cellulitis Chronic kidney disease Baseline creatinine between 1.5 and 1.6 Chronic venous stasis dermatitis Diabetes mellitus Diabetes mellitus with hyperglycemia Essential (primary) hypertension Follow up Glaucoma Hx of malignant neoplasm of kidney Hyperlipidemia Hyperthyroidism Multinodular goiter Obstructive sleep apnea Peripheral polyneuropathy Primary osteoarthritis involving multiple
[2021-03-30 22:10] VITALS: BP 132/78; PULSE 87; RESP 18; O2SAT 100
--- NOTE | 2021-03-30 23:44 | ADMGEN ---
This patient, Mable Chen, was admitted to [facility] Surg Room 314-01. Patient/family oriented to hospital policies and general routines including ID bracelet, bed and alarms, visiting hours, pain management, procedures, bathroom and other care routines, personal items, smoking policy, room service/diet, and visiting hours. Information on how to activate the Rapid Response Team has been discussed. Patient/Family are encouraged to report perceived risks to care and to ask questions if they do not understand what they are told or what they should do.
[2021-03-30 23:56] VITALS: BMI 41.0
[2021-03-30 23:57] VITALS: BP 144/84; PULSE 95; RESP 20; TEMP 36.2; O2SAT 96
[2021-03-31 03:11] VITALS: BP 130/71; PULSE 83; RESP 18; TEMP 35.8; O2SAT 98
[2021-03-31 08:00] VITALS: PULSE 84; RESP 18; O2SAT 98
--- NOTE | 2021-03-31 08:09 | PM.CNOR ---
Assessment and Plan Additional Plan Knee immob. attempt ambulation in knee immob once MRI completed and reviewed. MRI to assess this area and determine extent of injury DVT proph per medicine History of Present Illness HPI Consult date: 03/31/21 Chief complaint: Patellar fracture Narrative: 80 yo fell now c/o left knee pain at prox pole. [facility] Past Medical History Medical History (Updated 03/31/21 @ 00:44 by Anthony Cast MD) Aortic valve disease Atrial fibrillation, controlled BMI 36.0-36.9,adult BMI 38.0-38.9,adult Cellulitis Chronic kidney disease Baseline creatinine between 1.5 and 1.6 Chronic venous stasis dermatitis Diabetes mellitus Diabetes mellitus with hyperglycemia Essential (primary) hypertension Follow up Glaucoma Hx of malignant neoplasm of kidney Hyperlipidemia Hyperthyroidism Multinodular goiter Obstructive sleep apnea Peripheral polyneuropathy Primary osteoarthritis involving multiple joints Statin intolerance Surgical History Surgical History History of nephrectomy Left nephrectomy due to kidney cancer Status post cataract extraction of both eyes with insertion of intraocular lens Family History Family History (Updated 03/31/21 @ 00:03 by Valentine Calhoun RN) Father Bladder cancer TIA (transient ischemic attack) Hypertension Mother Chronic bronchitis Hypertension Sibling Hypertension Family history of atrial fibrillation Other Depression Family history of hearing loss Social History Social History Social History: The patient lives in her own home. Her nephew lives with her. She she is single and has never been . She does not have children. She is a retired teacher. She will occasionally drink an alcoholic beverage. She is a lifelong nonsmoker. She is still independent in activities of daily living and drives. Primary care physician: Dr. Sujit Shen Code status: Full code Healthcare power of criminal attorney: Nephew Smoking status: Never smoker Alcohol intake: never Substance use: never Spiritual care concerns: No Meds Home Medications and Allergies Home Medications Medication Instructions Recorded Confirmed Type netarsudil 0.02 % eye drops 1 drop EACH EYE HS 12/17/19 03/31/21 History omega-3 fatty acids 1,000 mg 1,500 mg PO DAILY cap 12/17/19 03/31/21 History capsule folic acid 1 mg tablet 1 mg PO DAILY #90 tablet 02/04/20 03/31/21 Rx Combigan 1 drp EACH EYE DAILY 07/19/20 03/31/21 History Lumigan 1 drp EACH EYE DAILY 07/19/20 03/31/21 History Tradjenta 5 mg PO DAILY 07/19/20 03/31/21 History cyanocobalamin (vitamin B-12) 500 mcg PO DAILY 07/19/20 03/31/21 History ezetimibe 10 mg PO DAILY 07/19/20 03/31/21 History silver [Silver-Sept] 1 applic TOPICAL DAILY #45 g 07/27/20 03/31/21 Rx bumetanide 2 mg tablet 2 mg PO DAILY #90 tablet 08/31/20 03/31/21 Rx olmesartan 40 mg tablet 40 mg PO DAILY #90 tablet 08/31/20 03/31/21 Rx potassium chloride 10 mEq 10 meq PO DAILY #90 cap 08/31/20 03/31/21 Rx capsule,extended release methimazole 5 mg tablet 5 mg PO DAILY #90 tablet 10/11/20 03/31/21 Rx metoprolol succinate 50 mg PO DAILY 03/31/21 03/31/21 History Allergies Allergy/AdvReac Type Severity Reaction Status Date / Time codeine Allergy Unknown Unknown Verified 03/31/21 00:40 Eovqfty-ZNI-YkP Reductase Allergy Unknown Unknown Verified 03/31/21 00:40 Inhibitor [Rxmmfrp-Jfd-Eeq Reductase Inhibitor] Sulfa (Sulfonamide Allergy Unknown Unknown Verified 03/31/21 00:40 Antibiotics) sulfanilamide Allergy Unknown Unknown Verified 03/31/21 00:40 Vital Signs Vital Signs - 24 hr 03/30/21 15:53 03/30/21 17:42 03/30/21 22:10 Temperature 36.8 C Pulse Rate 116 H 96 87 Respiratory Rate 20 18 18 Blood Pressure 150/114 H 148/78 H 132/78 Pulse Oximetry 99 99 100 03/30/21 23:57 03/31/21 03:11 Temp
[2021-03-31] MEDS: FOLIC ACID 1 MG TABLET PO (08:47)
[2021-03-31] MEDS: OLMESARTAN MEDOXOMIL 20 MG TABLET 40 MG PO (08:47)
[2021-03-31] MEDS: CYANOCOBALAMIN 500 MCG TABLET PO (08:47)
[2021-03-31 08:48] VITALS: PULSE 84
[2021-03-31] MEDS: HEPARIN SODIUM 5,000 UNITS/ML VIAL 5000 UNITS SUB-Q ×2 (08:48→22:08)
[2021-03-31] MEDS: METOPROLOL SUCCINATE EXT REL 50 MG TABCR PO (08:48)
[2021-03-31] MEDS: methiMAzole 5 MG TAB PO (08:48)
[2021-03-31] MEDS: BUMETANIDE 1 MG TABLET 2 MG PO (08:48)
[2021-03-31] MEDS: SILVERGEL (ELTA) 45 ML 1 APPLIC TOPICAL (08:49)
[2021-03-31 08:56] LABS: Glucose Point of Care 144 mg/dl (65-105)
--- NOTE | 2021-03-31 09:10 | PC.NURSE ---
MD [facility] office contacted to clarify weigh bearing status.
[2021-03-31 09:29] LABS: Anion Gap 9 mmol/L (8-16); Blood Urea Nitrogen 23 mg/dL (7-17); Calcium 8.6 mg/dL (8.4-10.2); Carbon Dioxide 22 mmol/L (22-30); Chloride 105 mmol/L (98-107); Estimated CRCL calculation 36 ml/min; Estimated Glomerular Filt Rate 39; Glucose 136 mg/dL (65-110); Potassium 3.5 mmol/L (3.4-5.0); Sodium 136 mmol/L (137-145)
[2021-03-31] MEDS: INSULIN ASPART (*BKC) 100 UNITS/ML SUB-Q ×2 (09:29→18:19)
[2021-03-31 09:47] LABS: Hematocrit 38.6 % (37.0-47.0); Hemoglobin 12.4 g/dL (12.0-15.0); Mean Corpuscular HGB Conc 32.1 g/dl (32-36); Mean Corpuscular Hemoglobin 26.8 pg (26-34); Mean Corpuscular Volume 83.5 fl (80-100); Mean Platelet Volume 11.4 fl (7.4-10.4); Platelet Count Result 199 k/mm3 (150-375); Red Blood Count 4.62 M/mm3 (4.2-5.4); Red Cell Distribution Width 18.6 % (11.5-14.5); White Blood Count 9.7 K/mm3 (4.5-10.0)
[2021-03-31 12:22] LABS: Glucose Point of Care 81 mg/dl (65-105)
--- NOTE | 2021-03-31 13:44 | PCOTNOTE ---
Attempted to see pt. for evaluation. Spoke with Dr Yu, who reports pt. can be Full Weight Bearing with knee immobilizer. Awaiting knee immobilizer from central supply. Will see when immobilizer arrives
[2021-03-31 14:00] VITALS: BP 131/78; PULSE 109; RESP 20; TEMP 36.3; O2SAT 96
[2021-03-31] MEDS: POTASSIUM CHLORIDE 20 MEQ TABLET 40 MEQ PO (14:12)
--- NOTE | 2021-03-31 14:18 | PM.IMPN ---
Progress Note: A&P Assessment and Plan (1) Patellar fracture: Qualifiers: Encounter type: initial encounter Fracture morphology: other fracture Fracture type: closed Laterality: left Qualified Code(s): S82.092A - Other fracture of left patella, initial encounter for closed fracture Code(s): S82.009A - Unspecified fracture of unspecified patella, initial encounter for closed fracture Status: Acute Assessment and Plan: Patient is an 80-year-old woman with a history of atrial fibrillation not on anticoagulation, aortic valve disease, obesity, CKD with only 1 kidney, diabetes, chronic venous stasis dermatitis, hypertension, hyperthyroidism, who presented to the emergency room after she had trouble getting off of the toilet prior to arrival which she states is due to her left knee pain and weakness. Patient states 2 days prior to arrival she had fallen and injured her left knee. Her nephew was able to get her up off of the ground and she has been getting around without any issues until she was sitting on the bathroom toilet and felt that her knee was not strong enough for her to get up so she called 911 note brought to the ER for further evaluation. In the ER and x-ray was completed of her left knee which showed suspicion of acute patellar superior enthesopathy fracture. Moderate-sized joint effusion. Moderate to severe osteoarthritis. Probable joint bodies. The patient was admitted into the hospital for further workup and evaluation of her knee pain especially since she lives at home alone. MRI was ordered and showed Complete tear of the anterior cruciate ligament. Medial and lateral meniscal tears. Severe medial and patellofemoral compartment osteoarthritis and mild osteoarthritis with moderate grade chondromalacia in the lateral compartment. 2.6 x 2.0 x 1.7 cm loose body at the suprapatellar pouch which likely accounts for the calcific density projecting over this region on the prior radiographs. The nurse called the orthopedic surgeon and read him the MRI results and he believes all of this is chronic findings and recommends the patient be full weight-bearing with a knee immobilizer in place. We are currently waiting for a knee immobilizer and then we will have her work with physical and occupational therapy to see how she does. She may need home health upon discharge or she does not do very well left to consider SNF placement. Pending now she does with therapy and how she is feeling otherwise Continue monitoring. Tylenol for pain control. (2) Primary osteoarthritis involving multiple joints: Code(s): M89.49 - Other hypertrophic osteoarthropathy, multiple sites Status: Acute Assessment and Plan: Unchanged Tylenol as needed (3) Obstructive sleep apnea: Code(s): G47.33 - Obstructive sleep apnea (adult) (pediatric) Status: Chronic Assessment and Plan: CPAP at nighttime (4) Atrial fibrillation, controlled: Code(s): I48.91 - Unspecified atrial fibrillation Status: Chronic Assessment and Plan: Rate controlled. Not anticoagulated Continue monitoring. (5) Chronic acquired lymphedema: Code(s): I89.0 - Lymphedema, not elsewhere classified Status: Acute Assessment and Plan: Wound care consulted (6) T2DM (type 2 diabetes mellitus): Code(s): E11.9 - Type 2 diabetes mellitus without complications Status: Acute Assessment and Plan: Will monitor glucose a.c. HS. Will hold her oral medications. Insulin sliding scale in place. Hypoglycemic protocol in place. (7) Chronic kidney disease: Code(s): N18.9 - Chronic kidney disease, unspecified
[2021-03-31 16:36] LABS: Add Urine Microscopic? YES; Appearance Urine Clear (Clear); Bacteria Urine Trace /hpf; Bilirubin Urine Negative (Negative); Blood Urine 1+ (Negative); Color Urine Straw (Yellow); Glucose Urine UA Negative (Negative); Ketones Urine Negative (Negative); Leukocyte Esterase Ur 2+ LEU/UL (Negative); Mucus Urine Rare /lpf; Nitrate Urine Negative (Negative); Protein Urine Negative (Negative); Specific Grav Ur 1.006 (1.001-1.035); Squamous Epithelial Cell Urine Rare /hpf (Few); Urobilinogen Urine Negative mg/dL (<2.0); WBC Urine 51-75 /hpf
--- NOTE | 2021-03-31 16:50 | PC.NURSE ---
Clarified non-formulary medication with pt this shift, pt decline omega 3 and lidocraine patches, bromonidine and timolol given separately not in combine formula, and family to bring in rhopressa eye drops from home.
[2021-03-31 17:11] LABS: Glucose Point of Care 150 mg/dl (65-105)
[2021-03-31 22:00] VITALS: BP 168/128; PULSE 75; RESP 18; TEMP 36.3; O2SAT 98
[2021-03-31] MEDS: LATANOPROST 0.005% OP SOLN 2.5 ML BTL 1 DROP EACH EYE (22:09)
[2021-03-31] MEDS: ACETAMINOPHEN 325 MG TABLET 650 MG PO (22:10)
[2021-03-31 23:06] LABS: Glucose Point of Care 92 mg/dl (65-105)
[2021-04-01 05:33] VITALS: BP 137/84; PULSE 81; RESP 18; TEMP 36.1; O2SAT 99
[2021-04-01 07:09] LABS: Anion Gap 7 mmol/L (8-16); Blood Urea Nitrogen 27 mg/dL (7-17); Calcium 8.3 mg/dL (8.4-10.2); Carbon Dioxide 25 mmol/L (22-30); Chloride 106 mmol/L (98-107); Estimated CRCL calculation 34 ml/min; Estimated Glomerular Filt Rate 36; Glucose 100 mg/dL (65-110); Magnesium 1.9 mg/dL (1.6-2.3); Potassium 3.8 mmol/L (3.4-5.0); Sodium 138 mmol/L (137-145)
[2021-04-01 08:13] LABS: Glucose Point of Care 90 mg/dl (65-105)
[2021-04-01] MEDS: BRIMONIDINE TARTRATE 0.2% OP SOLN 5 ML BTL 1 DROP EACH EYE (08:29)
[2021-04-01 08:30] VITALS: PULSE 70
[2021-04-01] MEDS: METOPROLOL SUCCINATE EXT REL 50 MG TABCR PO (08:30)
[2021-04-01] MEDS: OLMESARTAN MEDOXOMIL 20 MG TABLET 40 MG PO (08:30)
[2021-04-01] MEDS: CYANOCOBALAMIN 500 MCG TABLET PO (08:30)
[2021-04-01] MEDS: methiMAzole 5 MG TAB PO (08:30)
[2021-04-01] MEDS: BUMETANIDE 1 MG TABLET 2 MG PO (08:30)
[2021-04-01] MEDS: POTASSIUM CHLORIDE 10 MEQ TABLET.ER PO (08:30)
[2021-04-01] MEDS: FOLIC ACID 1 MG TABLET PO (08:30)
[2021-04-01] MEDS: HEPARIN SODIUM 5,000 UNITS/ML VIAL 5000 UNITS SUB-Q ×2 (08:31→21:26)
[2021-04-01] MEDS: TIMOLOL MALEATE 0.5% OP SOLN 5 ML BOTTLE 1 DROP EACH EYE (08:31)
[2021-04-01] MEDS: SILVERGEL (ELTA) 45 ML 1 APPLIC TOPICAL (08:31)
[2021-04-01 11:26] LABS: Glucose Point of Care 92 mg/dl (65-105)
[2021-04-01 14:00] VITALS: BP 140/80; PULSE 85; RESP 20; TEMP 36.2; O2SAT 97
--- NOTE | 2021-04-01 15:03 | PM.IMPN ---
Progress Note: A&P Assessment and Plan (1) Knee pain: Code(s): M25.569 - Pain in unspecified knee Status: Acute Assessment and Plan: Patient is an 80-year-old woman with a history of atrial fibrillation not on anticoagulation, aortic valve disease, obesity, CKD with only 1 kidney, diabetes, chronic venous stasis dermatitis, hypertension, hyperthyroidism, who presented to the emergency room after she had trouble getting off of the toilet prior to arrival which she states is due to her left knee pain and weakness. Patient states 2 days prior to arrival she had fallen and injured her left knee. Her nephew was able to get her up off of the ground and she has been getting around without any issues until she was sitting on the bathroom toilet and felt that her knee was not strong enough for her to get up so she called 911 note brought to the ER for further evaluation. In the ER and x-ray was completed of her left knee which showed suspicion of acute patellar superior enthesopathy fracture. Moderate-sized joint effusion. Moderate to severe osteoarthritis. Probable joint bodies. The patient was admitted into the hospital for further workup and evaluation of her knee pain especially since she lives at home alone. MRI was ordered and showed Complete tear of the anterior cruciate ligament. Medial and lateral meniscal tears. Severe medial and patellofemoral compartment osteoarthritis and mild osteoarthritis with moderate grade chondromalacia in the lateral compartment. 2.6 x 2.0 x 1.7 cm loose body at the suprapatellar pouch which likely accounts for the calcific density projecting over this region on the prior radiographs. The nurse called the orthopedic surgeon and read him the MRI results and he believes all of this is chronic findings and recommends the patient be full weight-bearing with a knee immobilizer in place. The patient did not do very well with PT/OT therapy and a knee immobilizer. We are working on getting her placed to an SNF facility, waiting for insurance authorization. She will most likely be her until Saturday because of this. Continue monitoring. Tylenol for pain control. (2) Primary osteoarthritis involving multiple joints: Code(s): M89.49 - Other hypertrophic osteoarthropathy, multiple sites Status: Acute Assessment and Plan: Unchanged Tylenol as needed (3) Obstructive sleep apnea: Code(s): G47.33 - Obstructive sleep apnea (adult) (pediatric) Status: Chronic Assessment and Plan: CPAP at nighttime (4) Atrial fibrillation, controlled: Code(s): I48.91 - Unspecified atrial fibrillation Status: Chronic Assessment and Plan: Rate controlled. Not anticoagulated Continue monitoring. (5) Chronic acquired lymphedema: Code(s): I89.0 - Lymphedema, not elsewhere classified Status: Acute Assessment and Plan: Wound care consulted (6) T2DM (type 2 diabetes mellitus): Code(s): E11.9 - Type 2 diabetes mellitus without complications Status: Acute Assessment and Plan: Will monitor glucose a.c. HS. Will hold her oral medications. Insulin sliding scale in place. Hypoglycemic protocol in place. (7) Chronic kidney disease: Code(s): N18.9 - Chronic kidney disease, unspecified Status: Acute Assessment and Plan: Renal function at her baseline. Will continue her home medications. (8) Edema: Qualifiers: Edema type: unspecified Qualified Code(s): R60.9 - Edema, unspecified Code(s): R60.9 - Edema, unspecified Status: Acute Assessment and Plan: Has edema to l
[2021-04-01 16:54] LABS: Glucose Point of Care 102 mg/dl (65-105)
[2021-04-01] MEDS: LATANOPROST 0.005% OP SOLN 2.5 ML BTL 1 DROP EACH EYE (21:27)
[2021-04-01 22:00] VITALS: BP 155/95; PULSE 99; RESP 24; TEMP 36.4; O2SAT 98
[2021-04-01 22:26] LABS: Glucose Point of Care 106 mg/dl (65-105)
[2021-04-02 06:00] VITALS: BP 158/95; PULSE 90; RESP 26; TEMP 36.4; O2SAT 98
[2021-04-02 07:38] LABS: Potassium 3.8 mmol/L (3.4-5.0)
[2021-04-02 08:17] LABS: Glucose Point of Care 99 mg/dl (65-105)
[2021-04-02 08:26] VITALS: PULSE 88
[2021-04-02] MEDS: BUMETANIDE 1 MG TABLET 2 MG PO (08:26)
[2021-04-02] MEDS: TIMOLOL MALEATE 0.5% OP SOLN 5 ML BOTTLE 1 DROP EACH EYE (08:26)
[2021-04-02] MEDS: FOLIC ACID 1 MG TABLET PO (08:26)
[2021-04-02] MEDS: POTASSIUM CHLORIDE 10 MEQ TABLET.ER PO (08:26)
[2021-04-02] MEDS: SILVERGEL (ELTA) 45 ML 1 APPLIC TOPICAL (08:26)
[2021-04-02] MEDS: METOPROLOL SUCCINATE EXT REL 50 MG TABCR PO (08:26)
[2021-04-02] MEDS: OLMESARTAN MEDOXOMIL 20 MG TABLET 40 MG PO (08:26)
[2021-04-02] MEDS: CYANOCOBALAMIN 500 MCG TABLET PO (08:26)
[2021-04-02] MEDS: methiMAzole 5 MG TAB PO (08:27)
[2021-04-02] MEDS: BRIMONIDINE TARTRATE 0.2% OP SOLN 5 ML BTL 1 DROP EACH EYE (08:27)
[2021-04-02] MEDS: HEPARIN SODIUM 5,000 UNITS/ML VIAL 5000 UNITS SUB-Q ×2 (08:27→22:04)
--- NOTE | 2021-04-02 08:33 | P.PNIM_ITS ---
Progress Note: A&P Assessment and Plan (1) Knee pain: Code(s): M25.569 - Pain in unspecified knee Status: Acute Assessment and Plan: Patient is an 80-year-old woman with a history of atrial fibrillation not on anticoagulation, aortic valve disease, obesity, CKD with only 1 kidney, diabetes, chronic venous stasis dermatitis, hypertension, hyperthyroidism, who presented to the emergency room after she had trouble getting off of the toilet prior to arrival which she states is due to her left knee pain and weakness. Patient states 2 days prior to arrival she had fallen and injured her left knee. Her nephew was able to get her up off of the ground and she has been getting around without any issues until she was sitting on the bathroom toilet and felt that her knee was not strong enough for her to get up so she called 911 note brought to the ER for further evaluation. In the ER and x-ray was completed of her left knee which showed suspicion of acute patellar superior enthesopathy fracture. Moderate-sized joint effusion. Moderate to severe osteoarthritis. Probable joint bodies. The patient was admitted into the hospital for further workup and evaluation of her knee pain especially since she lives at home alone. * MRI was ordered and showed Complete tear of the anterior cruciate ligament. Medial and lateral meniscal tears. Severe medial and patellofemoral compartment osteoarthritis and mild osteoarthritis with moderate grade chondromalacia in the lateral compartment. 2.6 x 2.0 x 1.7 cm loose body at the suprapatellar pouch which likely accounts for the calcific density projecting over this region on the prior radiographs. * The nurse called the orthopedic surgeon and read him the MRI results and he believes all of this is chronic findings and recommends the patient be full weight-bearing with a knee immobilizer in place. * The patient did not do very well with PT/OT therapy. We are working on getting her placed to an SNF facility, waiting for insurance authorization. She will most likely be her until Saturday because of this. Continue monitoring. Tylenol for pain control. (2) Primary osteoarthritis involving multiple joints: Code(s): M89.49 - Other hypertrophic osteoarthropathy, multiple sites Status: Acute Assessment and Plan: Unchanged Tylenol as needed (3) Obstructive sleep apnea: Code(s): G47.33 - Obstructive sleep apnea (adult) (pediatric) Status: Chronic Assessment and Plan: CPAP at nighttime (4) Atrial fibrillation, controlled: Code(s): I48.91 - Unspecified atrial fibrillation Status: Chronic Assessment and Plan: Rate controlled. Not anticoagulated Continue monitoring. (5) Chronic acquired lymphedema: Code(s): I89.0 - Lymphedema, not elsewhere classified Status: Acute Assessment and Plan: Wound care consulted (6) T2DM (type 2 diabetes mellitus): Code(s): E11.9 - Type 2 diabetes mellitus without complications Status: Acute Assessment and Plan: Will monitor glucose a.c. HS. Will hold her oral medications. Insulin sliding scale in place. Hypoglycemic protocol in place. (7) Chronic kidney disease: Code(s): N18.9 - Chronic kidney disease, unspecified Status: Acute Assessment and Plan: Renal functi
[2021-04-02 11:35] LABS: Glucose Point of Care 91 mg/dl (65-105)
[2021-04-02 14:00] VITALS: BP 138/90; PULSE 94; RESP 16; TEMP 36.2; O2SAT 98
[2021-04-02 16:38] LABS: Glucose Point of Care 109 mg/dl (65-105)
[2021-04-02 21:08] LABS: Glucose Point of Care 101 mg/dl (65-105)
[2021-04-02] MEDS: LATANOPROST 0.005% OP SOLN 2.5 ML BTL 1 DROP EACH EYE (22:04)
[2021-04-02 22:10] VITALS: BP 129/87; PULSE 89; RESP 14; TEMP 36.6; O2SAT 97
[2021-04-03 06:00] VITALS: BP 149/96; PULSE 87; RESP 18; TEMP 36.5; O2SAT 95
[2021-04-03 08:00] VITALS: PULSE 88; RESP 18; O2SAT 95
[2021-04-03 08:36] LABS: Glucose Point of Care 85 mg/dl (65-105)
[2021-04-03] MEDS: TIMOLOL MALEATE 0.5% OP SOLN 5 ML BOTTLE 1 DROP EACH EYE (08:41)
[2021-04-03] MEDS: POTASSIUM CHLORIDE 10 MEQ TABLET.ER PO (08:41)
[2021-04-03] MEDS: BRIMONIDINE TARTRATE 0.2% OP SOLN 5 ML BTL 1 DROP EACH EYE (08:41)
[2021-04-03] MEDS: BUMETANIDE 1 MG TABLET 2 MG PO (08:42)
[2021-04-03] MEDS: HEPARIN SODIUM 5,000 UNITS/ML VIAL 5000 UNITS SUB-Q (08:42)
[2021-04-03] MEDS: OLMESARTAN MEDOXOMIL 20 MG TABLET 40 MG PO (08:42)
[2021-04-03] MEDS: methiMAzole 5 MG TAB PO (08:42)
[2021-04-03] MEDS: CYANOCOBALAMIN 500 MCG TABLET PO (08:42)
[2021-04-03 08:43] VITALS: PULSE 88
[2021-04-03] MEDS: METOPROLOL SUCCINATE EXT REL 50 MG TABCR PO (08:43)
[2021-04-03] MEDS: FOLIC ACID 1 MG TABLET PO (08:43)
[2021-04-03] MEDS: SILVERGEL (ELTA) 45 ML 1 APPLIC TOPICAL (08:44)
[2021-04-03 11:58] LABS: Glucose Point of Care 117 mg/dl (65-105)
--- NOTE | 2021-04-03 12:00 | PM.IMPN ---
Progress Note: A&P Assessment and Plan (1) Knee pain: Code(s): M25.569 - Pain in unspecified knee Status: Acute Assessment and Plan: Patient is an 80-year-old woman with a history of atrial fibrillation not on anticoagulation, aortic valve disease, obesity, CKD with only 1 kidney, diabetes, chronic venous stasis dermatitis, hypertension, hyperthyroidism, who presented to the emergency room after she had trouble getting off of the toilet prior to arrival which she states is due to her left knee pain and weakness. Patient states 2 days prior to arrival she had fallen and injured her left knee. Her nephew was able to get her up off of the ground and she has been getting around without any issues until she was sitting on the bathroom toilet and felt that her knee was not strong enough for her to get up so she called 911 note brought to the ER for further evaluation. In the ER and x-ray was completed of her left knee which showed suspicion of acute patellar superior enthesopathy fracture. Moderate-sized joint effusion. Moderate to severe osteoarthritis. Probable joint bodies. The patient was admitted into the hospital for further workup and evaluation of her knee pain especially since she lives at home alone. MRI was ordered and showed Complete tear of the anterior cruciate ligament. Medial and lateral meniscal tears. Severe medial and patellofemoral compartment osteoarthritis and mild osteoarthritis with moderate grade chondromalacia in the lateral compartment. 2.6 x 2.0 x 1.7 cm loose body at the suprapatellar pouch which likely accounts for the calcific density projecting over this region on the prior radiographs. The nurse called the orthopedic surgeon and read him the MRI results and he believes all of this is chronic findings and recommends the patient be full weight-bearing with a knee immobilizer in place. The patient did not do very well with PT/OT therapy. We are working on getting her placed to an SNF facility, waiting for insurance authorization. Hopefully we hear more about her insurance and facility today. Continue monitoring. Tylenol for pain control. (2) Primary osteoarthritis involving multiple joints: Code(s): M89.49 - Other hypertrophic osteoarthropathy, multiple sites Status: Acute Assessment and Plan: Unchanged Tylenol as needed (3) Obstructive sleep apnea: Code(s): G47.33 - Obstructive sleep apnea (adult) (pediatric) Status: Chronic Assessment and Plan: CPAP at nighttime (4) Atrial fibrillation, controlled: Code(s): I48.91 - Unspecified atrial fibrillation Status: Chronic Assessment and Plan: Rate controlled. Not anticoagulated Continue monitoring. (5) Chronic acquired lymphedema: Code(s): I89.0 - Lymphedema, not elsewhere classified Status: Acute Assessment and Plan: Wound care consulted (6) T2DM (type 2 diabetes mellitus): Code(s): E11.9 - Type 2 diabetes mellitus without complications Status: Acute Assessment and Plan: Will monitor glucose a.c. HS. Will hold her oral medications. Insulin sliding scale in place. Hypoglycemic protocol in place. (7) Chronic kidney disease: Code(s): N18.9 - Chronic kidney disease, unspecified Status: Acute Assessment and Plan: Renal function at her baseline. Will continue her home medications. (8) Edema: Qualifiers: Edema type: unspecified Qualified Code(s): R60.9 - Edema, unspecified Code(s): R60.9 - Edema, unspecified Status: Acute Assessment and Plan: Has edema to lower extremities,
[2021-04-03 13:56] VITALS: BP 130/66; PULSE 76; RESP 18; TEMP 36.6; O2SAT 92
--- NOTE | 2021-04-03 14:16 | PM.DS ---
DS: Admitting Diagnosis Discharge Date 04/03/21 Admitting Diagnosis Knee pain/weakness DS: Discharge Diagnosis Discharge Diagnosis (1) Knee pain: Code(s): M25.569 - Pain in unspecified knee Status: Acute Assessment and Plan: Patient is an 80-year-old woman with a history of atrial fibrillation not on anticoagulation, aortic valve disease, obesity, CKD with only 1 kidney, diabetes, chronic venous stasis dermatitis, hypertension, hyperthyroidism, who presented to the emergency room after she had trouble getting off of the toilet prior to arrival which she states is due to her left knee pain and weakness. Patient states 2 days prior to arrival she had fallen and injured her left knee. Her nephew was able to get her up off of the ground and she has been getting around without any issues until she was sitting on the bathroom toilet and felt that her knee was not strong enough for her to get up so she called 911 note brought to the ER for further evaluation. In the ER and x-ray was completed of her left knee which showed suspicion of acute patellar superior enthesopathy fracture. Moderate-sized joint effusion. Moderate to severe osteoarthritis. Probable joint bodies. The patient was admitted into the hospital for further workup and evaluation of her knee pain especially since she lives at home alone. MRI was ordered and showed Complete tear of the anterior cruciate ligament. Medial and lateral meniscal tears. Severe medial and patellofemoral compartment osteoarthritis and mild osteoarthritis with moderate grade chondromalacia in the lateral compartment. 2.6 x 2.0 x 1.7 cm loose body at the suprapatellar pouch which likely accounts for the calcific density projecting over this region on the prior radiographs. The nurse called the orthopedic surgeon and read him the MRI results and he believes all of this is chronic findings and recommends the patient be full weight-bearing with a knee immobilizer in place. The patient did not do very well with PT/OT therapy and she is accepted to a shelter rehab facility in [facility] for further therapy until she is able to return home. Follow-up instructions given. Return to ER warnings given. The patient understands agrees the plan all questions answered. (2) Primary osteoarthritis involving multiple joints: Code(s): M89.49 - Other hypertrophic osteoarthropathy, multiple sites Status: Acute Assessment and Plan: Unchanged Tylenol as needed (3) Obstructive sleep apnea: Code(s): G47.33 - Obstructive sleep apnea (adult) (pediatric) Status: Chronic Assessment and Plan: CPAP at nighttime (4) Atrial fibrillation, controlled: Code(s): I48.91 - Unspecified atrial fibrillation Status: Chronic Assessment and Plan: Rate controlled. Not anticoagulated Continue monitoring. (5) Chronic acquired lymphedema: Code(s): I89.0 - Lymphedema, not elsewhere classified Status: Acute Assessment and Plan: Wound care consulted and recommend left lower leg ulcers, when areas are dry leave open to air. if area is wet cover with abd pad and roll gauze and change daily and prn when heavy soiled. (6) T2DM (type 2 diabetes mellitus): Code(s): E11.9 - Type 2 diabetes mellitus without complications Status: Acute Assessment and Plan: Continue oral medications upon discharge. (7) Chronic kidney disease: Code(s): N18.9 - Chronic kidney disease, unspecified Status: Acute Assessment and Plan: Renal function at her baseline. (8) Edema: Qualifiers:
--- NOTE | 2021-04-03 15:33 | PC.NURSE ---
Report called to Vanessa nurse at [facility] in [place].
[2021-04-03 15:37] LABS: Glucose Point of Care 138 mg/dl (65-105)
[2021-04-03 16:37] LABS: EDCOVIDSCREEN Negative (Negative)
--- NOTE | 2021-04-03 16:53 | PC.NURSE ---
Covid swab negative, results faxed to [facility] in [place]. Awaiting EMT's for transport to facility via ambulance.
[2021-04-03] MEDS: INSULIN ASPART (*BKC) 100 UNITS/ML SUB-Q (17:15)
== END 2021-04-03 21:00 ==
LOC: ANHED 20:29 → ANH3MEDSUR 22:25
PROVIDERS: Physician Assistant; Admitting Provider Internal Medicine; Emergency Provider Emergency Medicine; PCP Internal Medicine; Visit Provider Internal Medicine
DX: S83.512A Sprain of anterior cruciate ligament of left knee, initial encounter (principal); S83.282A Other tear of lateral meniscus, current injury, left knee, initial encounter; S83.242A Other tear of medial meniscus, current injury, left knee, initial encounter; M94.262 Chondromalacia, left knee; M23.42 Loose body in knee, left knee; W18.30XA Fall on same level, unspecified, initial encounter; I48.91 Unspecified atrial fibrillation; E11.42 Type 2 diabetes mellitus with diabetic polyneuropathy; G47.33 Obstructive sleep apnea (adult) (pediatric); I12.9 Hypertensive chronic kidney disease with stage 1 through stage 4 chronic kidney disease, or unspecified chronic kidney disease; N18.9 Chronic kidney disease, unspecified; E11.22 Type 2 diabetes mellitus with diabetic chronic kidney disease; I89.0 Lymphedema, not elsewhere classified; E78.5 Hyperlipidemia, unspecified; H40.9 Unspecified glaucoma; R60.9 Edema, unspecified; I87.8 Other specified disorders of veins; E05.90 Thyrotoxicosis, unspecified without thyrotoxic crisis or storm; M15.9 Polyosteoarthritis, unspecified; Z85.528 Personal history of other malignant neoplasm of kidney; Z90.5 Acquired absence of kidney; Z79.82 Long term (current) use of aspirin; Z79.84 Long term (current) use of oral hypoglycemic drugs; Z20.822 Contact with and (suspected) exposure to COVID-19
CPT/HCPCS: 36415; 73562; 73721; 80048; 81001; 82948; 83735; 84132; 85027; 87086; 87426; 96365; 96372; 96376; 97110; 97162; 97166; 97530; 97535; 99285; A9270; C9803; G0378; J0696; J1644; J1815